=== PATIENT | female | born 1995 | race Caucasian/White ===

== ENCOUNTER 2018-01-29 01:17 | Emergency (ER) | payer OTHER ==
--- NOTE | 2018-01-29 03:05 | ED ---
Abdominal Pain HPI - General Chief Complaint: Abdominal Pain Stated Complaint: Poss Ectopic Time Seen by Provider: 01/29/18 02:56 Source: patient Mode of arrival: ambulatory Limitations: no limitations - History of Present Illness Initial Comments: Nidia is a 22-year-old female with a history of ectopic in the past to presents to the emergency department today for evaluation of left-sided pelvic pain. Patient reports the pain began approximately one week ago, she thought it may be instructed cramps. However she didn't start her period so today she took 2 tests both of which were positive. She was concerned that she had pain and positive test she thought she should come to the ER for evaluation of possible ectopic . Pain is moderate, aching, constant, no exacerbating or relieving factors. She has no associated dysuria urinary frequency or hematuria. No history of kidney stones. Patient reports her last period started on November 06. - Related Data Previous Rx's Medication Instructions Recorded Ibuprofen [Motrin] 600 mg PO Q6HR PRN #40 day 01/22/17 [id number] 6.25-5-10Mg/5Ml 5 ml PO Q4-6H 5 Days ml 01/22/17 [Phenergan VC with Codeine] Allergies Allergy/AdvReac Type Severity Reaction Status Date / Time No Known Allergies Allergy Verified 01/29/18 01:45 Review of Systems ROS Statement: Those systems with pertinent positive or pertinent negative responses have been documented in the HPI. ROS Other: All systems not noted in ROS Statement are negative. Past Medical History Additional Past Medical History / Comment(s): Ectopic - left History of Any Multi-Drug Resistant Organisms: None Reported Additional Past Surgical History / Comment(s): tubal Past Psychological History: No Psychological Hx Reported Smoking Status: Current every day smoker Past Alcohol Use History: None Reported Past Drug Use History: None Reported General Exam - General Exam Comments Initial Comments: Physical Exam GENERAL: Patient is well-developed and well-nourished. Patient is nontoxic and well- hydrated and is in no distress. HENT: Normocephalic, Atraumatic. EYES: PERRL, EOMI PULMONARY: Unlabored respirations. No audible rales rhonchi or wheezing was noted. CARDIOVASCULAR: There is a regular rate and rhythm without any murmurs gallops or rubs. ABDOMEN: Soft and nontender with normal bowel sounds. SKIN: Skin is clear with no lesions or rashes and otherwise unremarkable. : Deferred NEUROLOGIC: Patient is alert and oriented x3. Moving all extremities spontaneously MUSCULOSKELETAL: Normal extremities with adequate strength and full range of motion. No lower extremity swelling or edema. No calf tenderness. PSYCHIATRIC: Normal psychiatric evaluation. Limitations: no limitations Limitations: no limitations Course Vital Signs 01/29/18 01:43 Temperature 98.6 F Pulse Rate 62 Respiratory 18 Rate Blood Pressure 119/80 O2 Sat by Pulse 100 Oximetry Medical Decision Making - Medical Decision Making Patient was seen and evaluated, history is obtained from patient Patient with a history of ectopic , 2 positive tests at home and left-sided pelvic pain Will obtain labs as well as an ultrasound to evaluate for possible ectopic Labs resulted, beta-hCGs only 350 therefore be unlikely to see anything on ultrasound however we will proceed with ultrasound Ultrasound findings reviewed. was not identified. There are no abnormalities noted in the adnexa bilaterally. No free fluid She was sleeping comfortably in bed. I woke the patient and discussed the results with her. I advised the patient that is imperative that she have close OB follow-up. She does have established care. Patient discharged home in stable condition. - Lab Data Result diagrams: 01/29/18 03:34 01/29/18 03:34 Lab Results 01/29/18 01/29/18 01/29/18 Range/Units 03:34 03:34 03:34 WBC 8.4 (3.8-10.6) k/uL RBC 4.41 (3.80-5.40) m/uL Hgb 13.8 (11.4-16.0) gm/dL Hct 40.0 (34.0-46.0) % MCV 90.8 (80.0-100.0) fL MCH 31.3 (25.0-35.0) pg MCHC 34.4 (31.0-37.0) g/dL RDW 13.6 (11.5-15.5) % Plt Count 223 (150-450) k/uL Neutrophils % 51 % Lymphocytes % 39 % Monocytes % 5 % Eosinophils % 2 % Basophils % 1 % Neutrophils # 4.3 (1.3-7.7) k/uL Lymphocytes # 3.3 (1.0-4.8) k/uL Monocytes # 0.4 (0-1.0) k/uL Eosinophils # 0.1 (0-0.7) k/uL Basophils # 0.1 (0-0.2) k/uL Sodium 139 (137-145) mmol/L Potassium 4.4 (3.5-5.1) mmol/L Chloride 107 (98-107) mmol/L Carbon Dioxide 23 (22-30) mmol/L Anion Gap 9 mmol/L BUN 8 (7-17) mg/dL Creatinine 0.67 (0.52-1.04) mg/dL Est GFR (CKD-EPI)AfAm >90 (>60 ml/min/1.73 sqM) Est GFR (CKD-EPI)NonAf >90 (>60 ml/min/1.73 sqM) Glucose 83 (74-99) mg/dL Calcium 9.3 (8.4-10.2) mg/dL Total Bilirubin 0.4 (0.2-1.3) mg/dL AST 19 (14-36) U/L ALT 32 (9-52) U/L Alkaline Phosphatase 66 (38-126) U/L Total Protein 7.6 (6.3-8.2) g/dL Albumin 4.5 (3.5-5.0) g/dL HCG, Quant 324.1 mIU/mL Urine Color Light Yellow Urine Appearance Cloudy H (Clear) Urine pH 6.0 (5.0-8.0) Ur Specific [place] 1.007 (1.001-1.035) Urine Protein Negative (Negative) Urine Glucose (UA) Negative (Negative) Urine Ketones Negative (Negative) Urine Blood Negative (Negative) Urine Nitrite Negative (Negative) Urine Bilirubin Negative (Negative) Urine Urobilinogen <2.0 (<2.0) mg/dL Ur Leukocyte Esterase Negative (Negative) Urine RBC 1 (0-5) /hpf Urine WBC <1 (0-5) /hpf Ur Squamous Epith Cells 9 H (0-4) /hpf Urine Bacteria Moderate H (None) /hpf Urine Mucus Rare H (None) /hpf Blood Type Blood Type Recheck Antibody Screen Spec Expiration Date 01/29/18 Range/Units 03:34 WBC (3.8-10.6) k/uL RBC (3.80-5.40) m/uL Hgb (11.4-16.0) gm/dL Hct (34.0-46.0) % MCV (80.0-100.0) fL MCH (25.0-35.0) pg MCHC (31.0-37.0) g/dL RDW (11.5-15.5) % Plt Count (150-450) k/uL Neutrophils % % Lymphocytes % % Monocytes % % Eosinophils % % Basophils % % Neutrophils # (1.3-7.7) k/uL Lymphocytes # (1.0-4.8) k/uL Monocytes # (0-1.0) k/uL Eosinophils # (0-0.7) k/uL Basophils # (0-0.2) k/uL Sodium (137-145) mmol/L Potassium (3.5-5.1) mmol/L Chloride (98-107) mmol/L Carbon Dioxide (22-30) mmol/L Anion Gap mmol/L BUN (7-17) mg/dL Creatinine (0.52-1.04) mg/dL Est GFR (CKD-EPI)AfAm (>60 ml/min/1.73 sqM) Est GFR (CKD-EPI)NonAf (>60 ml/min/1.73 sqM) Glucose (74-99) mg/dL Calcium (8.4-10.2) mg/dL Total Bilirubin (0.2-1.3) mg/dL AST (14-36) U/L ALT (9-52) U/L Alkaline Phosphatase (38-126) U/L Total Protein (6.3-8.2) g/dL Albumin (3.5-5.0) g/dL HCG, Quant mIU/mL Urine Color Urine Appearance (Clear) Urine pH (5.0-8.0) Ur Specific [place] (1.001-1.035) Urine Protein (Negative) Urine Glucose (UA) (Negative) Urine Ketones (Negative) Urine Blood (Negative) Urine Nitrite (Negative) Urine Bilirubin (Negative) Urine Urobilinogen (<2.0) mg/dL Ur Leukocyte Esterase (Negative) Urine RBC (0-5) /hpf Urine WBC (0-5) /hpf Ur Squamous Epith Cells (0-4) /hpf Urine Bacteria (None) /hpf Urine Mucus (None) /hpf Blood Type A Negative Blood Type Recheck No Antibody Screen NEGATIVE Spec Expiration Date 02/01/2018 - 4419 Disposition Clinical Impression: Pelvic pain affecting in first trimester, antepartum Disposition: HOME SELF-CARE Condition: Good Instructions: Pelvic Pain in Women (ED), Abdominal Pain in (ED) Is patient prescribed a controlled substance at d/c from ED?: No Referrals: Dina Wooten DO [Primary Care Provider] - 1-2 days Time of Disposition: 05:40
[2018-01-29 04:04] LABS: Basophils # (A) 0.1 k/uL (0-0.2); Basophils % (A) 1 %; Eosinophils # (A) 0.1 k/uL (0-0.7); Eosinophils % (A) 2 %; HGB 13.8 gm/dL (11.4-16.0); Lymphocytes # (A) 3.3 k/uL (1.0-4.8); Lymphocytes % (A) 39 %; MCH 31.3 pg (25.0-35.0); MCHC 34.4 g/dL (31.0-37.0); MCV 90.8 fL (80.0-100.0); Mean Platelet Volume 8.3; Monocytes # (A) 0.4 k/uL (0-1.0); Monocytes % (A) 5 %; Neutrophils # (A) 4.3 k/uL (1.3-7.7); Neutrophils % (A) 51 %; Platelet Count 223 k/uL (150-450); RBC 4.41 m/uL (3.80-5.40); RDW 13.6 % (11.5-15.5); WBC 8.4 k/uL (3.8-10.6)
[2018-01-29 04:06] LABS: Appearance,Urine Cloudy (Clear); Bacteria,Urine Moderate /hpf; Bilirubin,Urine Negative (Negative); Blood,Urine Negative (Negative); Color,Urine Light Yellow; Glucose,Urine (UA) Negative (Negative); Ketones,Urine Negative (Negative); Leukocyte Esterase,Urine Negative (Negative); Mucus,Urine Rare /hpf; Nitrite,Urine Negative (Negative); Protein,Urine Negative (Negative); RBC,Urine 1 /hpf (0-5); Specific Gravity,Urine 1.007 (1.001-1.035); Squamous Epithelial Cell,Urine 9 /hpf (0-4); Urobilinogen,Urine <2.0 mg/dL (<2.0); WBC,Urine <1 /hpf (0-5)
[2018-01-29 04:10] LABS: ALT 32 U/L (9-52); AST 19 U/L (14-36); Albumin 4.5 g/dL (3.5-5.0); Alkaline Phosphatase 66 U/L (38-126); Anion Gap 9 mmol/L; Blood Urea Nitrogen 8 mg/dL (7-17); Calcium 9.3 mg/dL (8.4-10.2); Carbon Dioxide 23 mmol/L (22-30); Chloride 107 mmol/L (98-107); Glucose 83 mg/dL (74-99); Potassium 4.4 mmol/L (3.5-5.1); Sodium 139 mmol/L (137-145); Total Bilirubin 0.4 mg/dL (0.2-1.3); Total Protein 7.6 g/dL (6.3-8.2)
[2018-01-29 04:25] LABS: HCG,Quantitative Serum 324.1 mIU/mL
--- NOTE | 2018-01-29 05:14 | US ---
EXAM: US First Trimester, Transabdominal US , Transvaginal CLINICAL HISTORY: Reason: Left sided pelvic pain, concern for ectopic TECHNIQUE: Real-time transabdominal and transvaginal obstetrical ultrasound of the maternal pelvis and a first trimester with image documentation. Transvaginal imaging was used for better evaluation of the fetus and adnexa. COMPARISON: None available FINDINGS: Gestation: No intrauterine identified. Uterus/cervix: Uterus measures 6.8 x 3.7 x 4.3 cm. No focal myometrial abnormalities. Ovaries: Right ovary is unremarkable and measures 3.3 x 1.3 x 1.8 cm. Left ovary is unremarkable and measures 2.5 x 1.7 x 2.2 cm. No abnormal adnexal masses or cysts identified. Free fluid: No pelvic free fluid. IMPRESSION: No intrauterine identified. No abnormal adnexal masses or cysts. No pelvic free fluid. In a patient with history of , differential considerations would include very early intrauterine , recent or possible nonidentified ectopic . Clinical correlation with serial beta hCG and short-term ultrasound follow-up recommended. [employer] 01/29/18 05:26 Verify Receipt Verified receipt with Dr. San on 01/29 05:26 (-05:00)
[2018-01-29 05:51] VITALS: BP 122/68; PULSE 69; RESP 16; TEMP 98.4
== END 2018-01-29 05:43 | disposition home or self-care (01) ==
LOC: EC 01:17
DX: O99.89 Other specified diseases and conditions complicating pregnancy, childbirth and the puerperium (principal); R10.2 Pelvic and perineal pain; O09.291 Supervision of pregnancy with other poor reproductive or obstetric history, first trimester; O99.331 Smoking (tobacco) complicating pregnancy, first trimester; F17.200 Nicotine dependence, unspecified, uncomplicated; Z3A.12 12 weeks gestation of pregnancy
CPT/HCPCS: 36415; 76801; 76817; 80053; 81001; 84702; 85025; 86850; 86900; 86901; 99284

== ENCOUNTER 2018-03-12 22:33 | Emergency (ER) | payer OTHER ==
[2018-03-12] MEDS ORDERED: SODIUM CHLORIDE 0.9% 1,000 ML IV ONE (22:44)
[2018-03-12 23:25] LABS: Basophils % (A) 0 %; Eosinophils # (A) 0.1 k/uL (0-0.7); Eosinophils % (A) 1 %; HCT 37.8 % (34.0-46.0); HGB 12.3 gm/dL (11.4-16.0); Lymphocytes # (A) 2.7 k/uL (1.0-4.8); Lymphocytes % (A) 30 %; MCH 30.1 pg (25.0-35.0); MCHC 32.7 g/dL (31.0-37.0); Mean Platelet Volume 7.7; Monocytes # (A) 0.4 k/uL (0-1.0); Monocytes % (A) 4 %; Neutrophils # (A) 5.8 k/uL (1.3-7.7); Neutrophils % (A) 62 %; Platelet Count 228 k/uL (150-450); RBC 4.11 m/uL (3.80-5.40); RDW 13.7 % (11.5-15.5); WBC 9.2 k/uL (3.8-10.6)
[2018-03-12 23:36] LABS: ALT 26 U/L (9-52); AST 15 U/L (14-36); Albumin 4.4 g/dL (3.5-5.0); Alkaline Phosphatase 48 U/L (38-126); Anion Gap 10 mmol/L; Blood Urea Nitrogen 7 mg/dL (7-17); Calcium 9.5 mg/dL (8.4-10.2); Carbon Dioxide 22 mmol/L (22-30); Chloride 105 mmol/L (98-107); Glucose 82 mg/dL (74-99); Potassium 3.9 mmol/L (3.5-5.1); Sodium 137 mmol/L (137-145); Total Bilirubin 0.4 mg/dL (0.2-1.3); Total Protein 7.3 g/dL (6.3-8.2)
--- NOTE | 2018-03-12 23:52 | US ---
EXAMINATION TYPE: Transabdominal DATE OF EXAM: 05/19/17 COMPARISON: US CLINICAL HISTORY: pain. EXAM PERFORMED: EXAM MEASUREMENTS: GESTATIONAL AGE / DATING Physician Established: Not yet established Dates by LMP: LMP unknown ( Dates by First Scan: No date by previous scan Dates by Current Scan for: (10 weeks/1 days) EDC: 10/07/18 MATERNAL ANATOMY Uterus: 9.3 x 6.3 x 6.5cm Right Ovary: 2.6 x 1.5 x 1.6cm Left Ovary: 2.6 x 1.7 x 2.0cm Post CDS / Adnexa: wnl Presence of free fluid: no GESTATION / SURVEY CRL: 3.2 (10 weeks/ 1 days) Yolk Sac (normal less than 6mm): not visualized Heart Rate: 159 bpm Rhythm: Normal IUP: Viable IUP Date of LMP: unknown Beta HcG (if available): Not available at this time IMPRESSION: No complicating process.
[2018-03-13] MEDS ORDERED: Rhogam IMMUNE GLOBULIN 1,500 UNIT/1 ML IM ONE (00:04)
--- NOTE | 2018-03-13 00:13 | ED ---
Abdominal Pain HPI - General Chief Complaint: Abdominal Pain Stated Complaint: early preg, cramping Time Seen by Provider: 03/12/18 22:44 Source: patient Mode of arrival: ambulatory Limitations: no limitations - History of Present Illness Initial Comments: 22-year-old female with history of left-sided ectopic presenting today for chief complaint of vaginal bleeding in . Patient states she has had multiple positive test with emergency department evaluation, she states that at her last ultrasound she was too early on to tell if it was viable intrauterine . Patient states she began having light pink spotting for the past 2 days. Patient admits to mild lower abdominal cramping. Patient denies any severe abdominal pain. Patient denies any vaginal discharge, nausea, vomiting, headache, dizziness, fever, chills, night sweats or other associated complaints. Remainder of ROS negative, Patient denies any recentshortness of breath, chest pain, back pain, numbness or tingling, dysuria or hematuria, constipation or diarrhea, headaches or visual changes, or any other complaints. Upon arrival patient's vital signs stable patient appears well signs of acute distress - Related Data Home Medications Medication Instructions Recorded Confirmed No Known Home Medications 03/12/18 03/12/18 Allergies Allergy/AdvReac Type Severity Reaction Status Date / Time No Known Allergies Allergy Verified 03/12/18 23:27 Review of Systems ROS Statement: Those systems with pertinent positive or pertinent negative responses have been documented in the HPI. ROS Other: All systems not noted in ROS Statement are negative. Past Medical History Additional Past Medical History / Comment(s): Ectopic - left History of Any Multi-Drug Resistant Organisms: None Reported Additional Past Surgical History / Comment(s): tubal Past Psychological History: No Psychological Hx Reported Smoking Status: Current every day smoker Past Alcohol Use History: None Reported Past Drug Use History: None Reported General Exam - General Exam Comments Initial Comments: General: The patient is awake and alert, in no distress, and does not appear acutely ill. Eye: Pupils are equal, round and reactive to light, extra-ocular movements are intact. No nystagmus. There is normal conjunctiva bilaterally. No signs of icterus. Ears, nose, mouth and throat: There are moist mucous membranes and no oral lesions. Neck: The neck is supple, there is no tenderness or JVD. Cardiovascular: There is a regular rate and rhythm. No murmur, rub or gallop is appreciated. Respiratory: Lungs are clear to auscultation, respirations are non-labored, breath sounds are equal. No wheezes, stridor, rales, or rhonchi. Gastrointestinal: Soft, non-distended, abdomen without masses or organomegaly noted. Mild lower pelvic bilateral abdominal pain to deep palpation. There is no rebound or guarding present. No CVA tenderness. Bowel sounds are unremarkable. Musculoskeletal: Normal ROM, no tenderness. Strength 5/5. Sensation intact. Pulses equal bilaterally 2+. Neurological: A&O x 3. CN II-XII intact, There are no obvious motor or sensory deficits. Coordination appears grossly intact. Speech is normal. Skin: Skin is warm and dry and no rashes or lesions are noted. Psychiatric: Cooperative, appropriate mood & affect, normal judgment. Pelvic Exam: Normal female hair pattern. No external lesions. Vaginal mucosa pink well rugated. No cervical motion tenderness. Cervical os closed. No blood in vaginal vault. No signs of vaginal discharge. Mild bilateral adnexal tenderness. Limitations: no limitations Course Vital Signs 03/12/18 03/13/18 22:37 01:11 Temperature 98.6 F 98.2 F Pulse Rate 92 81 Respiratory 20 18 Rate Blood Pressure 116/77 115/74 O2 Sat by Pulse 100 99 Oximetry Medical Decision Making - Medical Decision Making Ultrasound obtained revealing viable intrauterine . Adnexa within normal limits, no free fluid in the posterior cul-de-sac. No evidence of ectopic . [place]-rump consistent with 10 week . Patient A-, Rhogam administered. Abdominal exam not concerning for acute abdomen at this time. Patient did have mild adnexal tenderness however this is bilateral, and mild. Patient's history as well as physical examination findings concerning for threatened miscarriage. Hemoglobin and blood pressure stable at this time I do feel patient is stable for discharge with [facility] follow-up outpatient. Patient is agreeable plan discharge. Patient denies questions at this time. Return parameters were discussed at length with patient who verbalized understanding. Patient discharged in stable condition appearing well, I did discuss the case with Dr. Reddy attending provider prior to patient's discharge - Lab Data Result diagrams: 03/12/18 23:02 03/12/18 23:02 Lab Results 03/12/18 03/12/18 03/12/18 Range/Units 23:02 23:02 23:02 WBC 9.2 (3.8-10.6) k/uL RBC 4.11 (3.80-5.40) m/uL Hgb 12.3 (11.4-16.0) gm/dL Hct 37.8 (34.0-46.0) % MCV 92.0 (80.0-100.0) fL MCH 30.1 (25.0-35.0) pg MCHC 32.7 (31.0-37.0) g/dL RDW 13.7 (11.5-15.5) % Plt Count 228 (150-450) k/uL Neutrophils % 62 % Lymphocytes % 30 % Monocytes % 4 % Eosinophils % 1 % Basophils % 0 % Neutrophils # 5.8 (1.3-7.7) k/uL Lymphocytes # 2.7 (1.0-4.8) k/uL Monocytes # 0.4 (0-1.0) k/uL Eosinophils # 0.1 (0-0.7) k/uL Basophils # 0.0 (0-0.2) k/uL Sodium 137 (137-145) mmol/L Potassium 3.9 (3.5-5.1) mmol/L Chloride 105 (98-107) mmol/L Carbon Dioxide 22 (22-30) mmol/L Anion Gap 10 mmol/L BUN 7 (7-17) mg/dL Creatinine 0.50 L (0.52-1.04) mg/dL Est GFR (CKD-EPI)AfAm >90 (>60 ml/min/1.73 sqM) Est GFR (CKD-EPI)NonAf >90 (>60 ml/min/1.73 sqM) Glucose 82 (74-99) mg/dL Calcium 9.5 (8.4-10.2) mg/dL Total Bilirubin 0.4 (0.2-1.3) mg/dL AST 15 (14-36) U/L ALT 26 (9-52) U/L Alkaline Phosphatase 48 (38-126) U/L Total Protein 7.3 (6.3-8.2) g/dL Albumin 4.4 (3.5-5.0) g/dL HCG, Quant 81359.6 mIU/mL Urine Color Urine Appearance (Clear) Urine pH (5.0-8.0) Ur Specific [place] (1.001-1.035) Urine Protein (Negative) Urine Glucose (UA) (Negative) Urine Ketones (Negative) Urine Blood (Negative) Urine Nitrite (Negative) Urine Bilirubin (Negative) Urine Urobilinogen (<2.0) mg/dL Ur Leukocyte Esterase (Negative) Trichomonas Ag (Rapid) (Negative) Blood Type A Negative Blood Type Recheck No Antibody Screen NEGATIVE 03/12/18 03/13/18 Range/Units 23:02 00:09 WBC (3.8-10.6) k/uL RBC (3.80-5.40) m/uL Hgb (11.4-16.0) gm/dL Hct (34.0-46.0) % MCV (80.0-100.0) fL MCH (25.0-35.0) pg MCHC (31.0-37.0) g/dL RDW (11.5-15.5) % Plt Count (150-450) k/uL Neutrophils % % Lymphocytes % % Monocytes % % Eosinophils % % Basophils % % Neutrophils # (1.3-7.7) k/uL Lymphocytes # (1.0-4.8) k/uL Monocytes # (0-1.0) k/uL Eosinophils # (0-0.7) k/uL Basophils # (0-0.2) k/uL Sodium (137-145) mmol/L Potassium (3.5-5.1) mmol/L Chloride (98-107) mmol/L Carbon Dioxide (22-30) mmol/L Anion Gap mmol/L BUN (7-17) mg/dL Creatinine (0.52-1.04) mg/dL Est GFR (CKD-EPI)AfAm (>60 ml/min/1.73 sqM) Est GFR (CKD-EPI)NonAf (>60 ml/min/1.73 sqM) Glucose (74-99) mg/dL Calcium (8.4-10.2) mg/dL Total Bilirubin (0.2-1.3) mg/dL AST (14-36) U/L ALT (9-52) U/L Alkaline Phosphatase (38-126) U/L Total Protein (6.3-8.2) g/dL Albumin (3.5-5.0) g/dL HCG, Quant mIU/mL Urine Color Yellow Urine Appearance Clear (Clear) Urine pH 6.5 (5.0-8.0) Ur Specific [place] 1.010 (1.001-1.035) Urine Protein Negative (Negative) Urine Glucose (UA) Negative (Negative) Urine Ketones 1+ H (Negative) Urine Blood Negative (Negative) Urine Nitrite Negative (Negative) Urine Bilirubin Negative (Negative) Urine Urobilinogen <2.0 (<2.0) mg/dL Ur Leukocyte Esterase Negative (Negative) Trichomonas Ag (Rapid) Negative (Negative) Blood Type Blood Type Recheck Antibody Screen Disposition Clinical Impression: with 10 completed weeks gestation, Vaginal bleeding before 22 weeks gestation, Threatened in first trimester Disposition: HOME SELF-CARE Condition: Good Instructions (If sedation given, give patient instructions): Threatened Miscarriage (ED) Additional Instructions: Please use medication as discussed. Please follow-up with OBGYN in next week. Please return to emergency room if the symptoms increase or worsen or for any other concerns. Is patient prescribed a controlled substance at d/c from ED?: No Referrals: Dina Wooten DO [Primary Care Provider] - 1-2 days Daniel Lemos DO [Doctor of Osteopathic Medicine] - 1-2 days Isra Jenkins DO [REFERRING] - 1-2 days Time of Disposition: 00:23
[2018-03-13 00:33] LABS: HCG,Quantitative Serum 70806.6 mIU/mL
[2018-03-13 00:34] LABS: Appearance,Urine Clear (Clear); Bilirubin,Urine Negative (Negative); Blood,Urine Negative (Negative); Color,Urine Yellow; Glucose,Urine (UA) Negative (Negative); Ketones,Urine 1+ (Negative); Leukocyte Esterase,Urine Negative (Negative); Nitrite,Urine Negative (Negative); PH, Urine 6.5 (5.0-8.0); Protein,Urine Negative (Negative); Urobilinogen,Urine <2.0 mg/dL (<2.0)
[2018-03-13 01:15] VITALS: BP 115/74; PULSE 81; RESP 18; TEMP 98.2
[2018-03-14 14:28] LABS: C. trachomatis,PCR Negative (Neg,Equiv); Chlamydia trachomatis Source Vagina
[2018-03-14 14:31] LABS: N. gonorrhoeae,PCR Negative (Neg,Equiv); Neisseria Source Vagina
== END 2018-03-13 01:53 | disposition home or self-care (01) ==
LOC: EC 22:33
DX: O20.0 Threatened abortion (principal); O99.331 Smoking (tobacco) complicating pregnancy, first trimester; F17.200 Nicotine dependence, unspecified, uncomplicated; Z87.59 Personal history of other complications of pregnancy, childbirth and the puerperium; Z3A.10 10 weeks gestation of pregnancy
CPT/HCPCS: 36415; 86900; 86901; 80053; 85025; 86850; 81003; 84702; 87808; 87491; 87591; 87070; 87086; 87205; 76801; 99284; 96360; 96361; 96372; J2791

== ENCOUNTER 2018-07-08 23:29 | Emergency (ER) | payer OTHER ==
[2018-07-08 23:46] VITALS: BP 122/77; PULSE 95; RESP 20; TEMP 98.8
--- NOTE | 2018-07-09 00:34 | XR ---
EXAM: XR Left Wrist Complete, 4 Views CLINICAL HISTORY: Pain. TECHNIQUE: Frontal, lateral, oblique and scaphoid views of the left wrist. COMPARISON: No relevant prior studies available. FINDINGS: Bones/joints: No acute fracture. No dislocation. Soft tissues: Unremarkable. No radiopaque foreign body. IMPRESSION: No radiographic evidence of acute fracture or dislocation.
--- NOTE | 2018-07-09 00:36 | ED ---
Upper Extremity HPI - General Chief Complaint: Extremity Injury, Upper Stated Complaint: [facility]-Fall,lt hand injury Time Seen by Provider: 07/08/18 23:54 Source: patient Mode of arrival: ambulatory Limitations: no limitations - History of Present Illness Initial Comments: Patient is a 23-year-old woman who presents after having a wrist injury at work. She states that she had been standing on an elevated surface, went to step down and then when she stepped onto a box broke resulting in her falling. She caught her fall with her left hand and has had pain to the wrist. She denies other injuries in the fall. She denies any weakness or numbness to wrist or hand. Complaint: Injury to:: left, wrist -: hour(s) Other Extremity Injury: Wrist: Left Handedness: right Place: work Improves With: none Worsens With: movement of extremity Context: fall Associated Symptoms: denies other symptoms - Related Data Home Medications Medication Instructions Recorded Confirmed No Known Home Medications 03/12/18 03/12/18 Allergies Allergy/AdvReac Type Severity Reaction Status Date / Time adhesive tape AdvReac Rash/Hives Verified 07/08/18 23:46 Review of Systems ROS Statement: Those systems with pertinent positive or pertinent negative responses have been documented in the HPI. ROS Other: All systems not noted in ROS Statement are negative. Musculoskeletal: Reports: as per HPI, arthralgia. Denies: joint swelling Neurological: Reports: as per HPI. Denies: weakness, numbness Past Medical History Additional Past Medical History / Comment(s): Ectopic - left History of Any Multi-Drug Resistant Organisms: None Reported Additional Past Surgical History / Comment(s): tubal Past Psychological History: No Psychological Hx Reported Smoking Status: Current every day smoker Past Alcohol Use History: Rare Past Drug Use History: Marijuana General Exam Limitations: no limitations General appearance: alert, in no apparent distress Head exam: Present: atraumatic, normocephalic Cardiovascular Exam: Present: other (Radial pulses normal and symmetric.) Left Elbow exam: Present: normal inspection, full ROM. Absent: tenderness Forearm Wrist exam: Present: normal inspection, full ROM. Absent: tenderness, swelling, abrasion Hand Wrist exam: Present: normal inspection, full ROM, tenderness (The patient has small amount of tenderness at the thenar eminence.), other (There is no snuffbox tenderness.). Absent: swelling, abrasion, laceration, ecchymosis, deformity, crepitus, dislocation Neurological exam: Absent: motor sensory deficit Course Vital Signs 07/08/18 23:43 Temperature 98.8 F Pulse Rate 95 Respiratory 20 Rate Blood Pressure 122/77 O2 Sat by Pulse 98 Oximetry Disposition Clinical Impression: Sprain and strain of wrist Disposition: HOME SELF-CARE Condition: Good Instructions (If sedation given, give patient instructions): Wrist Injury (ED) Is patient prescribed a controlled substance at d/c from ED?: No Referrals: Dina Wooten DO [Primary Care Provider] - 1-2 days
== END 2018-07-09 00:49 | disposition home or self-care (01) ==
LOC: EC 23:29
DX: S63.502A Unspecified sprain of left wrist, initial encounter (principal); F17.200 Nicotine dependence, unspecified, uncomplicated; Z91.048 Other nonmedicinal substance allergy status; W18.31XA Fall on same level due to stepping on an object, initial encounter; Y93.89 Activity, other specified; Y92.69 Other specified industrial and construction area as the place of occurrence of the external cause; Y99.0 Civilian activity done for income or pay
CPT/HCPCS: 99283

== ENCOUNTER 2018-09-25 21:42 | Emergency (ER) | payer OTHER ==
[2018-09-25 21:48] VITALS: RESP 18
--- NOTE | 2018-09-25 22:40 | XR ---
EXAM: XR Chest, 2 Views CLINICAL HISTORY: ITS.REASON XR Reason: Pain TECHNIQUE: Frontal and lateral views of the chest. COMPARISON: 01/22/17 FINDINGS: Lungs: No consolidation or mass. Pleural space: No effusion. Heart: No cardiomegaly. Mediastinum: Unremarkable. Bones/joints: No acute findings. IMPRESSION: No acute cardiopulmonary process.
[2018-09-25] MEDS ORDERED: AMOXIC-POT CLAV 875MG STARTER 2 EACH TABLET PO STA (23:49)
--- NOTE | 2018-09-25 23:53 | ED ---
General Adult HPI - General Chief complaint: Upper Respiratory Infection Stated complaint: Congestion Time Seen by Provider: 09/25/18 22:01 Source: family, RN notes reviewed Mode of arrival: ambulatory Limitations: no limitations - History of Present Illness Initial comments: 23-year-old female with a past medical history of ectopic presents to the emergency department for a chief complaint of cough congestion and ear pain 2 days. Patient states she is having severe pain in her bilateral ears. States this hurts worse when she coughs or sneezes. Denies headache return or neck pain. Denies fevers or chills. Patient states she is also coughing up phlegm. Denies any shortness of breath or chest pain. Denies any difficulty breathing. Patient has not taken any medications for this. Patient requesting work note. Patient has no other complaints at this time including shortness of breath, chest pain, abdominal pain, nausea or vomiting, headache, or visual changes. - Related Data Previous Rx's Medication Instructions Recorded Amoxicillin/Potassium Clav 1 tab PO Q12HR #20 tab 09/25/18 [Augmentin 875-125 Tablet] Allergies Allergy/AdvReac Type Severity Reaction Status Date / Time adhesive tape AdvReac Rash/Hives Verified 09/25/18 21:45 Review of Systems ROS Statement: Those systems with pertinent positive or pertinent negative responses have been documented in the HPI. ROS Other: All systems not noted in ROS Statement are negative. Past Medical History Additional Past Medical History / Comment(s): Ectopic - left History of Any Multi-Drug Resistant Organisms: None Reported Additional Past Surgical History / Comment(s): tubal Past Psychological History: No Psychological Hx Reported Smoking Status: Current every day smoker Past Alcohol Use History: Rare Past Drug Use History: Marijuana General Exam Limitations: no limitations General appearance: alert, in no apparent distress Head exam: Present: atraumatic, normocephalic, normal inspection Eye exam: Present: normal appearance, PERRL, EOMI. Absent: scleral icterus, conjunctival injection, periorbital swelling ENT exam: Present: normal oropharynx (Uvula midline, no tonsillar exudates noted bilaterally.), mucous membranes moist, normal external ear exam. Absent: TM's normal bilaterally (Patient has erythematous bulging tympanic membranes bilaterally) Neck exam: Present: normal inspection, full ROM. Absent: tenderness, meningism us, lymphadenopathy Respiratory exam: Present: normal lung sounds bilaterally (No wheezing. No decreased breath sounds.). Absent: respiratory distress, wheezes, rales, rhonc hi, stridor Cardiovascular Exam: Present: regular rate, normal rhythm, normal heart sounds. Absent: systolic murmur, diastolic murmur, rubs, gallop, clicks GI/Abdominal exam: Present: soft, normal bowel sounds. Absent: distended, tenderness, guarding, rebound, rigid Neurological exam: Present: alert, oriented X3 Psychiatric exam: Present: normal affect, normal mood Course Vital Signs 09/25/18 21:45 Temperature 98 F Pulse Rate 92 Respiratory 18 Rate Blood Pressure 123/77 O2 Sat by Pulse 100 Oximetry Medical Decision Making - Medical Decision Making 23-year-old female presents for cough congestion and bilateral ear pain 2 days. Patient is coughing up phlegm. No shortness of breath or chest pain. On exam patient has erythematous bulging bilateral tympanic membranes. Lung sounds are clear. Vitals are stable, patient is afebrile. Denies any fevers at home. Denies any headache or neck pain. Chest x-ray negative for acute process. At this time patient likely has any situs with otitis media. She will be treated with Augmentin. Recommended following up with primary care in 1-2 days or returning here if she has any worsening symptoms. Disposition Clinical Impression: Sinusitis, Otitis media Disposition: HOME SELF-CARE Condition: Good Instructions (If sedation given, give patient instructions): Ear Infection (ED), Sinusitis (ED) Additional Instructions: Please take antibiotic as directed. Please follow-up with primary care in 1-2 days. Return here to the emergency department if you have any worsening symptoms. Prescriptions: Amoxicillin/Potassium Clav [Augmentin 875-125 Tablet] 1 tab PO Q12HR #20 tab Is patient prescribed a controlled substance at d/c from ED?: No Referrals: Dina Wooten DO [Primary Care Provider] - 1-2 days Time of Disposition: 23:48
[2018-09-26 00:08] VITALS: BP 124/79; PULSE 77; TEMP 98.8
== END 2018-09-26 00:16 | disposition home or self-care (01) ==
LOC: EC 21:42
DX: J32.9 Chronic sinusitis, unspecified (principal); H66.93 Otitis media, unspecified, bilateral; F17.200 Nicotine dependence, unspecified, uncomplicated; Z91.048 Other nonmedicinal substance allergy status
CPT/HCPCS: 71046; 99283

== ENCOUNTER 2019-05-15 16:03 | Observation (INO) | payer OTHER ==
--- NOTE | 2019-05-15 16:15 | ED ---
Skin/Abscess/FB HPI - General Chief complaint: Skin/Abscess/Foreign Body Stated complaint: Rash/hives Time Seen by Provider: 05/15/19 16:15 Source: patient Mode of arrival: ambulatory Limitations: no limitations - History of Present Illness Initial comments: 24-year-old female presenting today for chief complaint of itchiness all over. Patient states she has noticed small raised bumps under arms and legs she states they're very itchy. She states that this began today. Patient states she did buy a new soap. Patient denies any lip or tongue swelling. Patient did have one episode of vomiting today. Patient began menstruation today as well, admits to vaginal bleeding, but no abdominal pain. Denies liver disease, or ETOH abuse. Patient denies difficulty breathing or swallowing. Patient was concerned she was having an allergic reaction due to the itching and presented to the ER for evaluation. Upon arrival patient appears well, nontoxic no respiratory distress. - Related Data Previous Rx's Medication Instructions Recorded Amoxicillin/Potassium Clav 1 tab PO Q12HR #20 tab 09/25/18 [Augmentin 875-125 Tablet] Allergies Allergy/AdvReac Type Severity Reaction Status Date / Time adhesive tape AdvReac Rash/Hives Verified 05/15/19 16:14 Review of Systems ROS Statement: Those systems with pertinent positive or pertinent negative responses have been documented in the HPI. ROS Other: All systems not noted in ROS Statement are negative. Past Medical History Additional Past Medical History / Comment(s): Ectopic - left History of Any Multi-Drug Resistant Organisms: None Reported Additional Past Surgical History / Comment(s): tubal Past Psychological History: No Psychological Hx Reported Smoking Status: Current every day smoker Past Alcohol Use History: Rare Past Drug Use History: Marijuana General Exam - General Exam Comments Initial Comments: General: The patient is awake and alert, in no distress, and does not appear acutely ill. Eye: +3 mm pupils are equal, round and reactive to light, extra-ocular movements are intact. No nystagmus. There is normal conjunctiva bilaterally. Eye appear to have icterus. Ears, nose, mouth and throat: There are moist mucous membranes and no oral lesions. Neck: The neck is supple, there is no tenderness or JVD. Cardiovascular: There is a regular rate and rhythm. No murmur, rub or gallop is appreciated. Respiratory: Lungs are clear to auscultation, respirations are non-labored, breath sounds are equal. No wheezes, stridor, rales, or rhonchi. Gastrointestinal: Soft, non-distended, non-tender abdomen without masses or organomegaly noted. There is no rebound or guarding present. Musculoskeletal: Normal ROM, no tenderness. Strength 5/5. Sensation intact. Radial pulses equal bilaterally 2+. Neurological: A&O x 3. CN II-XII intact grossly, There are no obvious motor or sensory deficits. Coordination appears grossly intact. Speech is normal. Skin: Skin is warm and dry and no rashes. Small raised, skin color pin tip sized lesions on arms and legs, some areas are excoriated from itching, no raised wheels appreciated, no redness appreciated aside from excoriation' Psychiatric: Cooperative, appropriate mood & affect, normal judgment. Limitations: no limitations Course Vital Signs 05/15/19 05/15/19 05/15/19 16:12 18:47 19:29 Temperature 98.5 F 98.1 F Pulse Rate 86 82 85 Respiratory 20 18 18 Rate Blood Pressure 135/89 123/69 136/80 O2 Sat by Pulse 99 98 99 Oximetry Medical Decision Making - Medical Decision Making AST/ALT elevated, Bilirubin significantly elevated. Coagulation studies WNL. Patient has no GI symptoms or abdominal pain aside from 1 isolated episode of vomiting. No diarrhea. Patient currently menstruating. Patient VS stable, no hypotension. patient acetominophen levels WNL. patient hepatitis A panel (-). Remaining Hepatitis panel pending. No travel. No known exposures. Patient will be admitted for further evaluation of increased bilirubin/hepatitis. Patient is agreeable to admission. Dr. Doherty spoke with both admitting and GI who are agreeable to care plan. - Lab Data Result diagrams: 05/15/19 16:20 05/15/19 16:20 Lab Results 05/15/19 05/15/19 05/15/19 Range/Units 16:20 16:20 16:20 WBC 7.3 (3.8-10.6) k/uL RBC 4.78 (3.80-5.40) m/uL Hgb 15.1 (11.4-16.0) gm/dL Hct 44.5 (34.0-46.0) % MCV 93.1 (80.0-100.0) fL MCH 31.7 (25.0-35.0) pg MCHC 34.0 (31.0-37.0) g/dL RDW 12.8 (11.5-15.5) % Plt Count 204 (150-450) k/uL Neutrophils % 76 % Lymphocytes % 14 % Monocytes % 5 % Eosinophils % 4 % Basophils % 0 % Neutrophils # 5.6 (1.3-7.7) k/uL Lymphocytes # 1.0 (1.0-4.8) k/uL Monocytes # 0.4 (0-1.0) k/uL Eosinophils # 0.3 (0-0.7) k/uL Basophils # 0.0 (0-0.2) k/uL PT (9.0-12.0) sec INR (<1.2) APTT (22.0-30.0) sec Sodium (137-145) mmol/L Potassium (3.5-5.1) mmol/L Chloride (98-107) mmol/L Carbon Dioxide (22-30) mmol/L Anion Gap mmol/L BUN (7-17) mg/dL Creatinine (0.52-1.04) mg/dL Est GFR (CKD-EPI)AfAm (>60 ml/min/1.73 sqM) Est GFR (CKD-EPI)NonAf (>60 ml/min/1.73 sqM) Glucose (74-99) mg/dL Calcium (8.4-10.2) mg/dL Total Bilirubin (0.2-1.3) mg/dL Conjugated Bilirubin (0.0-0.3) mg/dL Unconjugated Bilirubin (0.0-1.1) mg/dL Delta Bilirubin (0.0-0.2) mg/dL AST (14-36) U/L ALT (4-34) U/L Alkaline Phosphatase (38-126) U/L Total Protein (6.3-8.2) g/dL Albumin (3.5-5.0) g/dL Lipase (23-300) U/L Urine Color Dark [place] Urine Appearance Cloudy H (Clear) Urine RBC >182 H (0-5) /hpf Urine WBC 118 H (0-5) /hpf Ur Squamous Epith Cells 33 H (0-4) /hpf Urine Bacteria Rare H (None) /hpf Urine Mucus Many H (None) /hpf Urine HCG, Qual Not Detected (Not Detectd) Urine Opiates Screen (NotDetected) Ur Oxycodone Screen (NotDetected) Urine Methadone Screen (NotDetected) Ur Propoxyphene Screen (NotDetected) Acetaminophen ug/mL Ur Barbiturates Screen (NotDetected) U Tricyclic Antidepress (NotDetected) Ur Phencyclidine Scrn (NotDetected) Ur Amphetamines Screen (NotDetected) U Methamphetamines Scrn (NotDetected) U Benzodiazepines Scrn (NotDetected) Urine Cocaine Screen (NotDetected) U Marijuana (THC) Screen (NotDetected) Hepatitis A IgM Ab 05/15/19 05/15/19 05/15/19 Range/Units 16:20 16:20 16:20 WBC (3.8-10.6) k/uL RBC (3.80-5.40) m/uL Hgb (11.4-16.0) gm/dL Hct (34.0-46.0) % MCV (80.0-100.0) fL MCH (25.0-35.0) pg MCHC (31.0-37.0) g/dL RDW (11.5-15.5) % Plt Count (150-450) k/uL Neutrophils % % Lymphocytes % % Monocytes % % Eosinophils % % Basophils % % Neutrophils # (1.3-7.7) k/uL Lymphocytes # (1.0-4.8) k/uL Monocytes # (0-1.0) k/uL Eosinophils # (0-0.7) k/uL Basophils # (0-0.2) k/uL PT (9.0-12.0) sec INR (<1.2) APTT (22.0-30.0) sec Sodium 138 (137-145) mmol/L Potassium 4.7 (3.5-5.1) mmol/L Chloride 103 (98-107) mmol/L Carbon Dioxide 24 (22-30) mmol/L Anion Gap 11 mmol/L BUN 14 (7-17) mg/dL Creatinine 0.89 (0.52-1.04) mg/dL Est GFR (CKD-EPI)AfAm >90 (>60 ml/min/1.73 sqM) Est GFR (CKD-EPI)NonAf >90 (>60 ml/min/1.73 sqM) Glucose 105 H (74-99) mg/dL Calcium 9.5 (8.4-10.2) mg/dL Total Bilirubin 6.2 H (0.2-1.3) mg/dL Conjugated Bilirubin (0.0-0.3) mg/dL Unconjugated Bilirubin (0.0-1.1) mg/dL Delta Bilirubin (0.0-0.2) mg/dL AST 179 H (14-36) U/L ALT 183 H (4-34) U/L Alkaline Phosphatase 204 H (38-126) U/L Total Protein 8.0 (6.3-8.2) g/dL Albumin 4.6 (3.5-5.0) g/dL Lipase 116 (23-300) U/L Urine Color Urine Appearance (Clear) Urine RBC (0-5) /hpf Urine WBC (0-5) /hpf Ur Squamous Epith Cells (0-4) /hpf Urine Bacteria (None) /hpf Urine Mucus (None) /hpf Urine HCG, Qual (Not Detectd) Urine Opiates Screen (NotDetected) Ur Oxycodone Screen (NotDetected) Urine Methadone Screen (NotDetected) Ur Propoxyphene Screen (NotDetected) Acetaminophen <10.0 ug/mL Ur Barbiturates Screen (NotDetected) U Tricyclic Antidepress (NotDetected) Ur Phencyclidine Scrn (NotDetected) Ur Amphetamines Screen (NotDetected) U Methamphetamines Scrn (NotDetected) U Benzodiazepines Scrn (NotDetected) Urine Cocaine Screen (NotDetected) U Marijuana (THC) Screen (NotDetected) Hepatitis A IgM Ab 05/15/19 05/15/19 05/15/19 Range/Units 16:20 16:20 17:13 WBC (3.8-10.6) k/uL RBC (3.80-5.40) m/uL Hgb (11.4-16.0) gm/dL Hct (34.0-46.0) % MCV (80.0-100.0) fL MCH (25.0-35.0) pg MCHC (31.0-37.0) g/dL RDW (11.5-15.5) % Plt Count (150-450) k/uL Neutrophils % % Lymphocytes % % Monocytes % % Eosinophils % % Basophils % % Neutrophils # (1.3-7.7) k/uL Lymphocytes # (1.0-4.8) k/uL Monocytes # (0-1.0) k/uL Eosinophils # (0-0.7) k/uL Basophils # (0-0.2) k/uL PT (9.0-12.0) sec INR (<1.2) APTT (22.0-30.0) sec Sodium (137-145) mmol/L Potassium (3.5-5.1) mmol/L Chloride (98-107) mmol/L Carbon Dioxide (22-30) mmol/L Anion Gap mmol/L BUN (7-17) mg/dL Creatinine (0.52-1.04) mg/dL Est GFR (CKD-EPI)AfAm (>60 ml/min/1.73 sqM) Est GFR (CKD-EPI)NonAf (>60 ml/min/1.73 sqM) Glucose (74-99) mg/dL Calcium (8.4-10.2) mg/dL Total Bilirubin 5.9 H (0.2-1.3) mg/dL Conjugated Bilirubin 2.6 H (0.0-0.3) mg/dL Unconjugated Bilirubin 1.8 H (0.0-1.1) mg/dL Delta Bilirubin 1.5 H (0.0-0.2) mg/dL AST (14-36) U/L ALT (4-34) U/L Alkaline Phosphatase (38-126) U/L Total Protein (6.3-8.2) g/dL Albumin (3.5-5.0) g/dL Lipase (23-300) U/L Urine Color Urine Appearance (Clear) Urine RBC (0-5) /hpf Urine WBC (0-5) /hpf Ur Squamous Epith Cells (0-4) /hpf Urine Bacteria (None) /hpf Urine Mucus (None) /hpf Urine HCG, Qual (Not Detectd) Urine Opiates Screen Detected H (NotDetected) Ur Oxycodone Screen Not Detected (NotDetected) Urine Methadone Screen Not Detected (NotDetected) Ur Propoxyphene Screen Not Detected (NotDetected) Acetaminophen ug/mL Ur Barbiturates Screen Not Detected (NotDetected) U Tricyclic Antidepress Not Detected (NotDetected) Ur Phencyclidine Scrn Not Detected (NotDetected) Ur Amphetamines Screen Not Detected (NotDetected) U Methamphetamines Scrn Not Detected (NotDetected) U Benzodiazepines Scrn Not Detected (NotDetected) Urine Cocaine Screen Not Detected (NotDetected) U Marijuana (THC) Screen Detected H (NotDetected) Hepatitis A IgM Ab NEGATIVE 05/15/19 Range/Units 17:20 WBC (3.8-10.6) k/uL RBC (3.80-5.40) m/uL Hgb (11.4-16.0) gm/dL Hct (34.0-46.0) % MCV (80.0-100.0) fL MCH (25.0-35.0) pg MCHC (31.0-37.0) g/dL RDW (11.5-15.5) % Plt Count (150-450) k/uL Neutrophils % % Lymphocytes % % Monocytes % % Eosinophils % % Basophils % % Neutrophils # (1.3-7.7) k/uL Lymphocytes # (1.0-4.8) k/uL Monocytes # (0-1.0) k/uL Eosinophils # (0-0.7) k/uL Basophils # (0-0.2) k/uL PT 11.4 (9.0-12.0) sec INR 1.1 (<1.2) APTT 22.1 (22.0-30.0) sec Sodium (137-145) mmol/L Potassium (3.5-5.1) mmol/L Chloride (98-107) mmol/L Carbon Dioxide (22-30) mmol/L Anion Gap mmol/L BUN (7-17) mg/dL Creatinine (0.52-1.04) mg/dL Est GFR (CKD-EPI)AfAm (>60 ml/min/1.73 sqM) Est GFR (CKD-EPI)NonAf (>60 ml/min/1.73 sqM) Glucose (74-99) mg/dL Calcium (8.4-10.2) mg/dL Total Bilirubin (0.2-1.3) mg/dL Conjugated Bilirubin (0.0-0.3) mg/dL Unconjugated Bilirubin (0.0-1.1) mg/dL Delta Bilirubin (0.0-0.2) mg/dL AST (14-36) U/L ALT (4-34) U/L Alkaline Phosphatase (38-126) U/L Total Protein (6.3-8.2) g/dL Albumin (3.5-5.0) g/dL Lipase (23-300) U/L Urine Color Urine Appearance (Clear) Urine RBC (0-5) /hpf Urine WBC (0-5) /hpf Ur Squamous Epith Cells (0-4) /hpf Urine Bacteria (None) /hpf Urine Mucus (None) /hpf Urine HCG, Qual (Not Detectd) Urine Opiates Screen (NotDetected) Ur Oxycodone Screen (NotDetected) Urine Methadone Screen (NotDetected) Ur Propoxyphene Screen (NotDetected) Acetaminophen ug/mL Ur Barbiturates Screen (NotDetected) U Tricyclic Antidepress (NotDetected) Ur Phencyclidine Scrn (NotDetected) Ur Amphetamines Screen (NotDetected) U Methamphetamines Scrn (NotDetected) U Benzodiazepines Scrn (NotDetected) Urine Cocaine Screen (NotDetected) U Marijuana (THC) Screen (NotDetected) Hepatitis A IgM Ab Disposition Clinical Impression: Icterus, Itchy skin, Increased bilirubin level, Hepatitis Disposition: ADMITTED IP TO THIS [facility] Condition: Stable Is patient prescribed a controlled substance at d/c from ED?: No Referrals: Dina Wooten DO [Primary Care Provider] - 1-2 days Time of Disposition: 19:15 Decision to Admit Reason: Admit from EC Decision Date: 05/15/19 Decision Time: 19:15
[2019-05-15] MEDS ORDERED: SODIUM CHLORIDE 0.9% 500 ML 500 ML IV ONE (16:19)
[2019-05-15] MEDS ORDERED: FAMOTIDINE 20 MG/2 ML VIAL IV STA (16:19)
[2019-05-15] MEDS ORDERED: methylPREDNISolone SOD SUCCI 125 MG/2 ML VIAL IV STA (16:19)
[2019-05-15 16:40] LABS: Basophils % (A) 0 %; Eosinophils # (A) 0.3 k/uL (0-0.7); Eosinophils % (A) 4 %; HCT 44.5 % (34.0-46.0); HGB 15.1 gm/dL (11.4-16.0); Lymphocytes % (A) 14 %; MCH 31.7 pg (25.0-35.0); MCV 93.1 fL (80.0-100.0); Mean Platelet Volume 8.7; Monocytes # (A) 0.4 k/uL (0-1.0); Monocytes % (A) 5 %; Neutrophils # (A) 5.6 k/uL (1.3-7.7); Neutrophils % (A) 76 %; Platelet Count 204 k/uL (150-450); RBC 4.78 m/uL (3.80-5.40); RDW 12.8 % (11.5-15.5); WBC 7.3 k/uL (3.8-10.6)
[2019-05-15 16:55] LABS: Bacteria,Urine Rare /hpf; Mucus,Urine Many /hpf; RBC,Urine >182 /hpf (0-5); Squamous Epithelial Cell,Urine 33 /hpf (0-4); WBC,Urine 118 /hpf (0-5)
[2019-05-15 16:56] LABS: Appearance,Urine Cloudy (Clear); Color,Urine Dark Orange
[2019-05-15 17:03] LABS: ALT 183 U/L (4-34); AST 179 U/L (14-36); African American GFR (CKD) >90 (>60 ml/min/1.73 sqM); Albumin 4.6 g/dL (3.5-5.0); Alkaline Phosphatase 204 U/L (38-126); Anion Gap 11 mmol/L; Blood Urea Nitrogen 14 mg/dL (7-17); Calcium 9.5 mg/dL (8.4-10.2); Carbon Dioxide 24 mmol/L (22-30); Chloride 103 mmol/L (98-107); Glucose 105 mg/dL (74-99); Non-African American GFR(CKD) >90 (>60 ml/min/1.73 sqM); Potassium 4.7 mmol/L (3.5-5.1); Sodium 138 mmol/L (137-145); Total Bilirubin 6.2 mg/dL (0.2-1.3)
[2019-05-15 17:40] LABS: INR 1.1 (<1.2); Partial Thromboplastin Time 22.1 sec (22.0-30.0); Prothrombin Time 11.4 sec (9.0-12.0)
--- NOTE | 2019-05-15 17:40 | US ---
EXAMINATION TYPE: US abdomen limited DATE OF EXAM: 05/15/2019 COMPARISON: CT 12/24/2016 CLINICAL HISTORY: jaundice, LFT elevated. Patient not NPO, ate faroese fries 1.5 hours ago. EXAM MEASUREMENTS: Liver Length: 16.1 cm Gallbladder Wall: 0.4 cm CBD: 0.3 cm Right Kidney: 10.6 x 5.1 x 5.6 cm Pancreas: Tail obscured by overlying bowel gas, visualized portions appear wnl Liver: Very mildly heterogenous. Gallbladder: Contracted. No stones visualized Evidence for sonographic Valle's sign: No CBD: wnl Right Kidney: No hydronephrosis or masses seen IMPRESSION: 1. Gallbladder wall thickening is likely attributable to contraction of the gallbladder. No cholelith iasis nor dilation of the common bile duct and therefore no findings to favor acute cholecystitis. 2. Very mildly heterogenous echotexture of the liver. Correlate for underlying hepatitis or other hep atocellular disease.
[2019-05-15 17:54] LABS: Amphetamine Screen,Urine Not Detected (NotDetected); Barbiturate Screen,Urine Not Detected (NotDetected); Benzodiazepines Screen,Urine Not Detected (NotDetected); Cocaine Screen,Urine Not Detected (NotDetected); Methadone Screen, Urine Not Detected (NotDetected); Opiate Screen,Urine Detected (NotDetected); Oxycodone Screen, Urine Not Detected (NotDetected); Phencyclidine Screen,Urine Not Detected (NotDetected); Tricyclic Antidepressant,Urine Not Detected (NotDetected); Urn Cannabinoid Scrn Detected (NotDetected)
[2019-05-15 18:19] LABS: Hepatitis A Antibody IgM NEGATIVE
[2019-05-15 18:47] LABS: Bilirubin, Conjugated 2.6 mg/dL (0.0-0.3); Bilirubin, Delta 1.5 mg/dL (0.0-0.2); Bilirubin,Unconjugated 1.8 mg/dL (0.0-1.1); Total Bilirubin 5.9 mg/dL (0.2-1.3)
[2019-05-15] MEDS ORDERED: NALOXONE 0.4 MG/ML 1 ML VIAL IV PRN (19:13)
[2019-05-15] MEDS ORDERED: NICOTINE 14MG/24HR PATCH TRANSDERM STA (19:40)
[2019-05-15] MEDS: SODIUM CHLORIDE 0.9% 1,000 ML IV SCH (21:24)
[2019-05-15] MEDS ORDERED: ONDANSETRON 4 MG/2 ML VIAL IVP PRN (23:28)
[2019-05-15] MEDS ORDERED: MORPHINE SULFATE 2 MG/ML SYRINGE IVP PRN ×2 (23:29→23:54)
[2019-05-16 06:27] LABS: HCT 39.2 % (34.0-46.0); HGB 13.3 gm/dL (11.4-16.0); MCH 32.5 pg (25.0-35.0); MCHC 33.9 g/dL (31.0-37.0); MCV 95.8 fL (80.0-100.0); Mean Platelet Volume 9.1; Platelet Count 189 k/uL (150-450); RDW 12.9 % (11.5-15.5); WBC 7.7 k/uL (3.8-10.6)
[2019-05-16 06:43] LABS: ALT 265 U/L (4-34); AST 272 U/L (14-36); African American GFR (CKD) >90 (>60 ml/min/1.73 sqM); Albumin 4.2 g/dL (3.5-5.0); Alkaline Phosphatase 230 U/L (38-126); Anion Gap 10 mmol/L; Blood Urea Nitrogen 11 mg/dL (7-17); Calcium 9.3 mg/dL (8.4-10.2); Carbon Dioxide 23 mmol/L (22-30); Chloride 110 mmol/L (98-107); Glucose 123 mg/dL (74-99); Non-African American GFR(CKD) >90 (>60 ml/min/1.73 sqM); Sodium 143 mmol/L (137-145); Total Bilirubin 3.9 mg/dL (0.2-1.3); Total Protein 7.5 g/dL (6.3-8.2)
[2019-05-16] MEDS: SODIUM CHLORIDE 0.9% 1,000 ML IV SCH (08:47)
[2019-05-16] MEDS ORDERED: PANTOPRAZOLE 40 MG TABLET PO SCH (09:30)
[2019-05-16 11:53] LABS: Hepatitis B Core IgM Non-Reactive (Non-Reactive); Hepatitis B Surface Antigen Non-Reactive (Non-Reactive); Hepatitis C IgG Antibody Non-Reactive (Non-Reactive)
[2019-05-16] MEDS ORDERED: NICOTINE 21MG/24HR PATCH TRANSDERM SCH (15:00)
--- NOTE | 2019-05-16 15:00 | P.HPIM ---
History of Present Illness H&P Date: 05/16/19 Chief Complaint: Itching History of presenting complaint: This is a pleasant 24-year-old patient of Dr. Dina Wooten. Rather unremarkable past medical history. Does smoke a pack a day. Does smoke some marijuana. Works at [employer]. Lives with her fianc. On Thursday she was given a tablet of Ritalin by a friend that she took. Didn't feel any different. Later in the day did have a rash. Also took Tylenol about thousand milligrams. She patient subsequently developed some itching and nausea. Decided to come to the ER. Found to be icterus and jaundice. She also noticed in the hospital that her urine had become strong and yellow colored. Admitted for the same. Patient denies taking any other health supplement or any other drugs. Had slight right upper quadrant discomfort. Improved this morning. GI was consulted. Denies any other sexual activity other than that with her fianc. She doesn't think her finances any other sexual partner. Review of systems: GEN.: Itching, rash improved EYES: None HEENT: No throat tightness NECK: None RESPIRATORY: No wheezing CARDIOVASCULAR: None GASTROINTESTINAL: None GENITOURINARY: None MUSCULOSKELETAL: None LYMPHATICS: None HEMATOLOGICAL: None PSYCHIATRY: None NEUROLOGICAL: None Past medical history to include: Unremarkable Social history: As of the [employer]. Does smoke marijuana. Smokes about a pack a day. Denies use of any other drugs. Does work at [employer]. Family history: Unremarkable Physical examination: VITAL SIGNS: 98.5, 86, 20, 135/89, 99% on room air] GENERAL: BMI 30.4, sitting on bed, not in distress. EYES: [Pupils equal. Conjunctiva icterus l. HEENT: External appearance of nose and ears normal, oral cavity grossly normal. NECK: JVD not raised; masses not palpable. HEART: First and second heart sounds are normal; no edema. LUNGS: Respiratory rate normal; clear to auscultation. ABDOMEN: Soft, nontender, liver spleen not palpable, no masses palpable. PSYCH: Alert and oriented x3; mood and affect normal. NEUROLOGICAL: Cranial nerves grossly intact; no facial asymmetry, power and sensation grossly intact. LYMPHATICS: No lymph nodes palpable in the axilla and neck INVESTIGATIONS, reviewed in the clinical context: White count 7.3 hemoglobin 15 11 platelets 204 potassium 4.7 bun 14 creatinine 0.89 Total bilirubin 5.9 AST 179 ALT 183 alkaline phosphatase 204 lipase 116 Today-potassium 5 creatinine 0.7 to total bilirubin 3.9 AST 272 AST to 65 alkaline phosphatase 2:30 Abdominal ultrasound-gallbladder wall contracted to gallstones, bilateral dilatation. Mild heterogenous echo stricture of the liver - Assessment: -Acute obstructive jaundice. Cause unclear. Could be viral. No evidence of gallbladder or stones. No fever no chills. Slight bump in LFTs to slight decrease in bilirubin. -Recreational marijuana use -Chronic nicotine dependence patient cigarette smoker -Obesity BMI 30.4 Plan: Patient is admitted. Initially given IV fluids. Repeat LFTs in the morning. Discussed with Dr. Dalton Samaniego from GI. Any liver often symptoms including Tylenol will not be given. Patient otherwise feeling better. Did have slight discomfort in the right upper quadrant. Follow overnight. Patient was regular diet. Discussed with patient. Repeat labs in the morning. Past Medical History Additional Past Medical History / Comment(s): Ectopic - left History of Any Multi-Drug Resistant Organisms: None Reported Additional Past Surgical History / Comment(s): tubal Past Anesthesia/Blood Transfusion Reactions: No Reported Reaction Past Psychological History: No Psychological Hx Reported Smoking Status: Current every day smoker Past Alcohol Use History: Rare Past Drug Use History: Marijuana Medications and Allergies Home Medications Medication Instructions Recorded Confirmed Type No Known Home Medications 05/16/19 05/16/19 History Allergies Allergy/AdvReac Type Severity Reaction Status Date / Time adhesive tape AdvReac Rash/Hives Verified 05/16/19 07:59 Physical Exam Vitals: Vital Signs Temp Pulse Pulse Resp BP BP BP 05/16/19 04:50 98.2 F 63 18 114/77 05/15/19 20:20 98 F 73 18 110/71 05/15/19 19:29 85 18 136/80 05/15/19 18:47 98.1 F 82 18 123/69 05/15/19 16:12 98.5 F 86 20 135/89 Pulse Ox 05/16/19 04:50 97 05/15/19 20:20 98 05/15/19 19:29 99 05/15/19 18:47 98 05/15/19 16:12 99 Intake and Output 05/15/19 05/16/19 05/16/19 22:59 06:59 14:59 Intake Total 200 100 Balance 200 100 Intake: Oral 200 100 Other: Voiding Method Toilet # Voids 1 1 Weight 87.997 kg Results CBC & Chem 7: 05/16/19 05:59 05/16/19 05:59 Labs: Abnormal Lab Results - Last 24 Hours (Table) 05/15/19 05/15/19 05/15/19 Range/Units 16:20 16:20 16:20 Chloride (98-107) mmol/L Glucose 105 H (74-99) mg/dL Total Bilirubin 6.2 H (0.2-1.3) mg/dL Conjugated Bilirubin (0.0-0.3) mg/dL Unconjugated Bilirubin (0.0-1.1) mg/dL Delta Bilirubin (0.0-0.2) mg/dL AST 179 H (14-36) U/L ALT 183 H (4-34) U/L Alkaline Phosphatase 204 H (38-126) U/L Urine Appearance Cloudy H (Clear) Urine RBC >182 H (0-5) /hpf Urine WBC 118 H (0-5) /hpf Ur Squamous Epith Cells 33 H (0-4) /hpf Urine Bacteria Rare H (None) /hpf Urine Mucus Many H (None) /hpf Urine Opiates Screen Detected H (NotDetected) U Marijuana (THC) Screen Detected H (NotDetected) 05/15/19 05/16/19 Range/Units 16:20 05:59 Chloride 110 H (98-107) mmol/L Glucose 123 H (74-99) mg/dL Total Bilirubin 5.9 H 3.9 H (0.2-1.3) mg/dL Conjugated Bilirubin 2.6 H (0.0-0.3) mg/dL Unconjugated Bilirubin 1.8 H (0.0-1.1) mg/dL Delta Bilirubin 1.5 H (0.0-0.2) mg/dL AST 272 H (14-36) U/L ALT 265 H (4-34) U/L Alkaline Phosphatase 230 H (38-126) U/L Urine Appearance (Clear) Urine RBC (0-5) /hpf Urine WBC (0-5) /hpf Ur Squamous Epith Cells (0-4) /hpf Urine Bacteria (None) /hpf Urine Mucus (None) /hpf Urine Opiates Screen (NotDetected) U Marijuana (THC) Screen (NotDetected) Thrombosis Risk Factor Assmnt - Choose All That Apply Any of the Below Risk Factors Present?: No Other Risk Factors: No Thrombosis Risk Factor Assessment Level: Very Low Risk
--- NOTE | 2019-05-16 15:04 | CONS ---
CONSULTATION DATE OF SERVICE: 05/16/2019 REASON FOR CONSULTATION: Acute hepatitis. HISTORY OF PRESENT ILLNESS: The patient is a 24-year-old pleasant white female admitted to the emergency room complaining of skin rash on the upper extremities, associated with some vague abdominal discomfort that started on Thursday. The patient states that she took Adderall, just one dose and after that she started having some itching on the upper extremities with slightly bumped raised lesions, started in arms and then involved her lower extremities, also. She is got concerned, she came to the emergency room yesterday and was noted to have some jaundice and labs were done which revealed a bilirubin of 6 with elevated ALT and AST. The patient denies any history of alcohol abuse. Denies any intravenous drug use or any high-risk behavior. No prior history of chronic liver disease. No history of jaundice or hepatitis in the past. She denies taking any new medications in the last 2 weeks. No recent antibiotic use. She denies any cough, fever, chills, or night sweats. No recent travel history. PAST MEDICAL HISTORY: Unremarkable. MEDICATIONS AT HOME: Adderall as mentioned above. PAST SURGICAL HISTORY: Ectopic . ALLERGIES: None. SOCIAL HISTORY: Current smoker but no alcohol use. FAMILY HISTORY: Unremarkable. REVIEW OF SYSTEMS: CARDIOPULMONARY: She denies any chest pain or shortness of breath. GENITOURINARY: No dysuria or hematuria. MUSCULOSKELETAL: Unremarkable. SKIN: Unremarkable. ENDOCRINE: Unremarkable. PSYCHIATRIC: Unremarkable. NEUROLOGY: Unremarkable. ENT/VISION: Unremarkable. CONSTITUTIONAL: No recent weight loss. No fever, chills or night sweats. PHYSICAL EXAMINATION: Blood pressure is 114/77, pulse 63, temperature 98.2. HEENT: Examination unremarkable, conjunctivae are pink, sclerae slightly icteric. Oral cavity no lesions. NECK: No JVD or lymph node enlargement. CHEST: Clear to auscultation. HEART: Regular rate and rhythm. ABDOMEN: Soft. There was very minimal tenderness in the right upper quadrant area, but it was benign. The rest of the abdomen was benign. EXTREMITIES: No pedal edema. SKIN: No rashes. NEUROLOGIC: Alert and oriented x3. No focal deficits. LABS: WBC 7.3, hemoglobin 15.1, platelets normal. Basic metabolic panel is normal. PT, INR is within normal limits. T-bilirubin 5.9 is down to 3.9 today. AST 179, ALT 183, alkaline phosphatase 204. Today, AST is 272, ALT is 265, alkaline phosphatase 230. Ultrasound of the right upper quadrant showed no evidence of gallstones. No biliary ductal dilation. Increased echogenicity of the liver suspicious for underlying hepatitis. IMPRESSION: This is a lady who presents to the hospital with some rash involving the upper extremities after taking 1 dose of Adderall on Thursday and noted to have elevated LFTs and jaundice. She has no history of chronic liver disease, most likely dealing with an acute hepatocellular injury secondary to acute hepatitis, probably medication related or infectious related. Hepatitis serologies for A, B and C are pending. She denies any fever, chills, night sweats. The possibility of COVID-19 infection cannot be excluded. Doubt it is Adderall related as the symptoms began on Thursday itself, but she denies taking any new medications in the last 2 weeks. Her bilirubin is slightly improved today. RECOMMENDATIONS: 1. We will repeat labs in the morning. 2. Await hepatitis serologies for A, B and C. 3. If her labs are improving, she can be discharged home tomorrow with an outpatient followup in a week. Thank you for this consultation. MMODL / IJN: [id number] /
[2019-05-16 15:31] VITALS: BP 108/70; PULSE 52; RESP 16; TEMP 98.5
[2019-05-16 18:33] LABS: EBV-EA (IgG) 0.3 AI; EBV-EBNA(IgG) >8.0 AI; EBV-VCA (IgG) >8.0 AI; EBV-VCA (IgM) 0.3 AI
--- NOTE | 2019-05-17 21:29 | P.DS ---
Providers Date of admission: 05/15/19 19:26 Expected date of discharge: 05/16/19 Attending physician: Jermaine Espinal Consults: 05/15/19 19:13 Consult Physician Routine Consulting Provider: Dolores Samaniego Consult Reason/Comments: Hepatitis Do you want consulting provider notified?: Already Contacted 05/15/19 19:27 Consult Physician Urgent Consulting Provider: Dolores Samaniego Consult Reason/Comments: hepatitis Do you want consulting provider notified?: Already Contacted Primary care physician: Dina Wooten [facility] Course: Chief Complaint: Itching History of presenting complaint: This is a pleasant 24-year-old patient of Dr. Dina Wooten. Rather unremarkable past medical history. Does smoke a pack a day. Does smoke some marijuana. Works at [employer]. Lives with her fianc. On Thursday she was given a tablet of Ritalin by a friend that she took. Didn't feel any different. Later in the day did have a rash. Also took Tylenol about thousand milligrams. She patient subsequently developed some itching and nausea. Decided to come to the ER. Found to be icterus and jaundice. She also noticed in the hospital that her urine had become strong and yellow colored. Admitted for the same. Patient denies taking any other health supplement or any other drugs. Had slight right upper quadrant discomfort. Improved this morning. GI was consulted. Denies any other sexual activity other than that with her fianc. She doesn't think her finances any other sexual partner. Patient is seen by Dr. Dalton Samaniego from GI. Plan was to repeat labs in the morning. Late in the evening patient left AMA Consultation: Dr. Dalton Samaniego Physical examination: VITAL SIGNS: 98.5, 52, 16, 108/70, 99% on room air GENERAL: BMI 30.4, sitting on bed, not in distress. EYES: [Pupils equal. Conjunctiva icterus l. HEENT: External appearance of nose and ears normal, oral cavity grossly normal. NECK: JVD not raised; masses not palpable. HEART: First and second heart sounds are normal; no edema. LUNGS: Respiratory rate normal; clear to auscultation. ABDOMEN: Soft, nontender, liver spleen not palpable, no masses palpable. PSYCH: Alert and oriented x3; mood and affect normal. INVESTIGATIONS, reviewed in the clinical context: White count 7.3 hemoglobin 15 11 platelets 204 potassium 4.7 bun 14 creatinine 0.89 Total bilirubin 5.9 AST 179 ALT 183 alkaline phosphatase 204 lipase 116 Today-potassium 5 creatinine 0.7 to total bilirubin 3.9 AST 272 AST to 65 alkaline phosphatase 2:30 Abdominal ultrasound-gallbladder wall contracted to gallstones, bilateral dilatation. Mild heterogenous echo stricture of the liver - Assessment: -Acute obstructive jaundice. Cause unclear. Could be viral. No evidence of gallbladder or stones. No fever no chills. Slight bump in LFTs to slight decrease in bilirubin. -Recreational marijuana use -Chronic nicotine dependence patient cigarette smoker -Obesity BMI 30.4 Disposition: Patient left AMA Patient Condition at Discharge: Stable Plan - Discharge Summary Discharge Rx Participant: No New Discharge Prescriptions: No Action No Known Home Medications Discharge Medication List No Known Home Medications 05/16/19 [History] Follow up Appointment(s)/Referral(s): Dina Wooten DO [Primary Care Provider] - 1-2 days Discharge/Stand Alone Forms: Work/School Release, Work/Release Restrictions Form Discharge Disposition: Left Against Medical Advice
== END 2019-05-16 19:15 | disposition left against medical advice (07) ==
LOC: EC 16:03 → 6NMEDSUR 19:26 → INTOOBSV 19:26
PROVIDERS: ADMIT Hospitalist; ATTEND Hospitalist
DX: L29.9 Pruritus, unspecified (principal); R17 Unspecified jaundice; R21 Rash and other nonspecific skin eruption; R11.2 Nausea with vomiting, unspecified; R10.11 Right upper quadrant pain; R79.89 Other specified abnormal findings of blood chemistry; R74.8 Abnormal levels of other serum enzymes; E66.9 Obesity, unspecified; Z68.30 Body mass index [BMI] 30.0-30.9, adult; F17.210 Nicotine dependence, cigarettes, uncomplicated; F12.90 Cannabis use, unspecified, uncomplicated; Z91.048 Other nonmedicinal substance allergy status
CPT/HCPCS: 96375 ×3; 96361; 96374; 99284; 36415; 86665 ×2; 80053 ×2; 80074; 86663; 82248; 83690; 85025; 85027; 85610; 85730; 81001; 81025; 86664; 86645; 80306; 80329; 76705; G0378 ×2; S4990 ×2; J2930; J2405; J2270

== ENCOUNTER 2019-05-18 11:47 | Emergency (ER) | payer OTHER ==
[2019-05-18] MEDS ORDERED: METOCLOPRAMIDE 5 MG/ML 2 ML VIAL IVP STA (12:33)
[2019-05-18] MEDS ORDERED: SODIUM CHLORIDE 0.9% 1,000 ML IV STA (12:33)
[2019-05-18] MEDS ORDERED: FAMOTIDINE 20 MG/2 ML VIAL IV STA (12:33)
--- NOTE | 2019-05-18 12:37 | ED ---
General Adult HPI - General Chief complaint: Abdominal Pain Stated complaint: Revisit/abd pain Time Seen by Provider: 05/18/19 12:11 Source: patient, RN notes reviewed Mode of arrival: ambulatory Limitations: no limitations - History of Present Illness Initial comments: Patient is a pleasant 24-year-old female presenting to the emergency Department with complaints of abdominal discomfort. Onset of symptoms was earlier this morning around 2 or 3 AM. Patient had right upper quadrant discomfort with associated nausea and vomiting. Discomfort is improved and is currently 4/10. Patient still has some nausea. No constipation or diarrhea. Patient was in the hospital recently for rash. Blood work showed elevated liver enzymes and patient stayed overnight. Patient only had mild abdominal pressure at that time. Rash has completely resolved. Rash was described by patient is diffuse urticarial type rash. Patient states it was pruritic. - Related Data Home Medications Medication Instructions Recorded Confirmed No Known Home Medications 05/16/19 05/16/19 Allergies Allergy/AdvReac Type Severity Reaction Status Date / Time adhesive tape AdvReac Rash/Hives Verified 05/18/19 11:55 Review of Systems ROS Statement: Those systems with pertinent positive or pertinent negative responses have been documented in the HPI. ROS Other: All systems not noted in ROS Statement are negative. Constitutional: Denies: fever Eyes: Denies: eye pain ENT: Denies: ear pain Respiratory: Denies: cough Cardiovascular: Denies: chest pain Endocrine: Denies: fatigue Gastrointestinal: Reports: as per HPI, abdominal pain, nausea, vomiting Genitourinary: Denies: dysuria Musculoskeletal: Denies: back pain Skin: Reports: as per HPI Neurological: Denies: weakness Past Medical History Additional Past Medical History / Comment(s): Ectopic - left History of Any Multi-Drug Resistant Organisms: None Reported Additional Past Surgical History / Comment(s): tubal Past Anesthesia/Blood Transfusion Reactions: No Reported Reaction Past Psychological History: No Psychological Hx Reported Smoking Status: Current every day smoker Past Alcohol Use History: Rare Past Drug Use History: Marijuana General Exam Limitations: no limitations General appearance: alert, in no apparent distress Head exam: Present: normocephalic Eye exam: Present: normal appearance, PERRL ENT exam: Present: normal oropharynx Neck exam: Present: normal inspection Respiratory exam: Present: normal lung sounds bilaterally Cardiovascular Exam: Present: regular rate, normal rhythm Expanded Peripheral pulses: 2+: Posterior Tibialis (R), Posterior Tibialis (L), Dorsalis Pedis (R), Dorsalis Pedis (L) GI/Abdominal exam: Present: soft, tenderness (Moderate right upper quadrant t enderness, mild epigastric tenderness), normal bowel sounds. Absent: distended, guarding, rebound, rigid Extremities exam: Present: normal inspection Neurological exam: Present: alert Psychiatric exam: Present: normal affect, normal mood Skin exam: Present: normal color Course Vital Signs 05/18/19 11:52 Temperature 98.6 F Pulse Rate 80 Respiratory 20 Rate Blood Pressure 134/92 O2 Sat by Pulse 98 Oximetry Medical Decision Making - Medical Decision Making Patient reevaluated and feels much better. Liver enzymes have improved from previous. Abdomen soft with minimal tenderness right upper quadrant. Patient offered further imaging however refuses and states she feels better and like to go home. Patient updated on results and need for follow-up. - Lab Data Result diagrams: 05/18/19 12:46 05/18/19 12:46 Lab Results 05/18/19 05/18/19 05/18/19 Range/Units 12:40 12:46 12:46 WBC 6.8 (3.8-10.6) k/uL RBC 4.71 (3.80-5.40) m/uL Hgb 14.8 (11.4-16.0) gm/dL Hct 44.3 (34.0-46.0) % MCV 94.0 (80.0-100.0) fL MCH 31.3 (25.0-35.0) pg MCHC 33.3 (31.0-37.0) g/dL RDW 12.8 (11.5-15.5) % Plt Count 234 (150-450) k/uL Neutrophils % 51 % Lymphocytes % 38 % Monocytes % 5 % Eosinophils % 3 % Basophils % 1 % Neutrophils # 3.5 (1.3-7.7) k/uL Lymphocytes # 2.6 (1.0-4.8) k/uL Monocytes # 0.3 (0-1.0) k/uL Eosinophils # 0.2 (0-0.7) k/uL Basophils # 0.1 (0-0.2) k/uL PT 9.4 (9.0-12.0) sec INR 0.9 (<1.2) APTT 23.8 (22.0-30.0) sec Sodium (137-145) mmol/L Potassium (3.5-5.1) mmol/L Chloride (98-107) mmol/L Carbon Dioxide (22-30) mmol/L Anion Gap mmol/L BUN (7-17) mg/dL Creatinine (0.52-1.04) mg/dL Est GFR (CKD-EPI)AfAm (>60 ml/min/1.73 sqM) Est GFR (CKD-EPI)NonAf (>60 ml/min/1.73 sqM) Glucose (74-99) mg/dL Calcium (8.4-10.2) mg/dL Total Bilirubin (0.2-1.3) mg/dL AST (14-36) U/L ALT (4-34) U/L Alkaline Phosphatase (38-126) U/L Total Protein (6.3-8.2) g/dL Albumin (3.5-5.0) g/dL Amylase (30-110) U/L Lipase (23-300) U/L Urine Color Light Yellow Urine Appearance Clear (Clear) Urine pH 6.0 (5.0-8.0) Ur Specific [place] 1.005 (1.001-1.035) Urine Protein Negative (Negative) Urine Glucose (UA) Negative (Negative) Urine Ketones Negative (Negative) Urine Blood Negative (Negative) Urine Nitrite Negative (Negative) Urine Bilirubin Negative (Negative) Urine Urobilinogen <2.0 (<2.0) mg/dL Ur Leukocyte Esterase Negative (Negative) 05/18/19 Range/Units 12:46 WBC (3.8-10.6) k/uL RBC (3.80-5.40) m/uL Hgb (11.4-16.0) gm/dL Hct (34.0-46.0) % MCV (80.0-100.0) fL MCH (25.0-35.0) pg MCHC (31.0-37.0) g/dL RDW (11.5-15.5) % Plt Count (150-450) k/uL Neutrophils % % Lymphocytes % % Monocytes % % Eosinophils % % Basophils % % Neutrophils # (1.3-7.7) k/uL Lymphocytes # (1.0-4.8) k/uL Monocytes # (0-1.0) k/uL Eosinophils # (0-0.7) k/uL Basophils # (0-0.2) k/uL PT (9.0-12.0) sec INR (<1.2) APTT (22.0-30.0) sec Sodium 139 (137-145) mmol/L Potassium 4.6 (3.5-5.1) mmol/L Chloride 105 (98-107) mmol/L Carbon Dioxide 26 (22-30) mmol/L Anion Gap 8 mmol/L BUN 9 (7-17) mg/dL Creatinine 0.70 (0.52-1.04) mg/dL Est GFR (CKD-EPI)AfAm >90 (>60 ml/min/1.73 sqM) Est GFR (CKD-EPI)NonAf >90 (>60 ml/min/1.73 sqM) Glucose 91 (74-99) mg/dL Calcium 9.4 (8.4-10.2) mg/dL Total Bilirubin 0.6 (0.2-1.3) mg/dL AST 63 H (14-36) U/L ALT 236 H (4-34) U/L Alkaline Phosphatase 180 H (38-126) U/L Total Protein 7.7 (6.3-8.2) g/dL Albumin 4.5 (3.5-5.0) g/dL Amylase 47 (30-110) U/L Lipase 68 (23-300) U/L Urine Color Urine Appearance (Clear) Urine pH (5.0-8.0) Ur Specific [place] (1.001-1.035) Urine Protein (Negative) Urine Glucose (UA) (Negative) Urine Ketones (Negative) Urine Blood (Negative) Urine Nitrite (Negative) Urine Bilirubin (Negative) Urine Urobilinogen (<2.0) mg/dL Ur Leukocyte Esterase (Negative) - Radiology Data Radiology results: report reviewed (Ultrasound shows no evidence of cholecystitis or cholelithiasis. winnie-portal brightness.), image reviewed (Abdominal x-ray shows no acute process) Disposition Clinical Impression: Abdominal pain Disposition: HOME SELF-CARE Condition: Stable Instructions (If sedation given, give patient instructions): Abdominal Pain (ED) Additional Instructions: Please follow-up with primary care physician as well as gastric urologist in the next couple days for recheck. Return for increased pain, vomiting, fever, worsening or changing symptoms or other concerns. Is patient prescribed a controlled substance at d/c from ED?: No Referrals: Dina Wooten DO [Primary Care Provider] - 1-2 days Dolores Samaniego MD [STAFF PHYSICIAN] - 1-2 days Time of Disposition: 14:10
--- NOTE | 2019-05-18 13:07 | XR ---
EXAMINATION TYPE: XR KUB DATE OF EXAM: 05/18/2019 12:57 PM CLINICAL HISTORY: Right upper quadrant pain with nausea and vomiting TECHNIQUE: Single upright KUB image of the abdomen is obtained. COMPARISON: None. FINDINGS: Scattered gas is seen in non-distended small bowel loops. Gas and fecal material is seen in non-distended colon. There is no visceromegaly on x-ray, pneumoperitoneum, or abnormal calcification appreciated. The lung bases are clear and the osseous structures are intact. IMPRESSION: Nonobstructive bowel gas pattern.
[2019-05-18 13:17] LABS: Appearance,Urine Clear (Clear); Bilirubin,Urine Negative (Negative); Blood,Urine Negative (Negative); Color,Urine Light Yellow; Glucose,Urine (UA) Negative (Negative); Ketones,Urine Negative (Negative); Leukocyte Esterase,Urine Negative (Negative); Nitrite,Urine Negative (Negative); Protein,Urine Negative (Negative); Specific Gravity,Urine 1.005 (1.001-1.035); Urobilinogen,Urine <2.0 mg/dL (<2.0)
[2019-05-18 13:20] LABS: Basophils # (A) 0.1 k/uL (0-0.2); Basophils % (A) 1 %; Eosinophils # (A) 0.2 k/uL (0-0.7); Eosinophils % (A) 3 %; HCT 44.3 % (34.0-46.0); HGB 14.8 gm/dL (11.4-16.0); Lymphocytes # (A) 2.6 k/uL (1.0-4.8); Lymphocytes % (A) 38 %; MCH 31.3 pg (25.0-35.0); MCHC 33.3 g/dL (31.0-37.0); Mean Platelet Volume 8.5; Monocytes # (A) 0.3 k/uL (0-1.0); Monocytes % (A) 5 %; Neutrophils # (A) 3.5 k/uL (1.3-7.7); Neutrophils % (A) 51 %; Platelet Count 234 k/uL (150-450); RBC 4.71 m/uL (3.80-5.40); RDW 12.8 % (11.5-15.5); WBC 6.8 k/uL (3.8-10.6)
[2019-05-18 13:27] LABS: INR 0.9 (<1.2); Partial Thromboplastin Time 23.8 sec (22.0-30.0); Prothrombin Time 9.4 sec (9.0-12.0)
--- NOTE | 2019-05-18 13:37 | US ---
EXAMINATION TYPE: US gallbladder DATE OF EXAM: 05/18/2019 COMPARISON: 05/15/19 CLINICAL HISTORY: ruq pain. RUQ pain, nausea and vomiting, dizziness EXAM MEASUREMENTS: Liver Length: 15.3 cm Gallbladder Wall: 0.3 cm CBD: 0.4 cm Right Kidney: 10.8 x 4.4 x 5.0 cm Pancreas: limited evaluation due to overlying bowel content Liver: Similar periportal brightness. This could relate to technique. Gallbladder: no evidence of stones Evidence for sonographic Valle's sign: no CBD: wnl Right Kidney: no evidence of hydronephrosis or mass IMPRESSION: 1. No sonographic evidence of acute cholecystitis nor cholelithiasis. 2. Periportal brightness remains as seen on the prior ultrasound of 05/15/2019. Again this could relat e to hepatitis or technique in this patient with a stricture jaundice.
[2019-05-18 13:41] LABS: ALT 236 U/L (4-34); AST 63 U/L (14-36); African American GFR (CKD) >90 (>60 ml/min/1.73 sqM); Albumin 4.5 g/dL (3.5-5.0); Alkaline Phosphatase 180 U/L (38-126); Amylase 47 U/L (30-110); Anion Gap 8 mmol/L; Blood Urea Nitrogen 9 mg/dL (7-17); Calcium 9.4 mg/dL (8.4-10.2); Carbon Dioxide 26 mmol/L (22-30); Chloride 105 mmol/L (98-107); Glucose 91 mg/dL (74-99); Non-African American GFR(CKD) >90 (>60 ml/min/1.73 sqM); Potassium 4.6 mmol/L (3.5-5.1); Sodium 139 mmol/L (137-145); Total Bilirubin 0.6 mg/dL (0.2-1.3); Total Protein 7.7 g/dL (6.3-8.2)
[2019-05-18 14:28] VITALS: BP 134/82; PULSE 79; RESP 16; TEMP 98.1
== END 2019-05-18 14:26 | disposition home or self-care (01) ==
LOC: EC 11:47
DX: R10.11 Right upper quadrant pain (principal); R11.2 Nausea with vomiting, unspecified; F17.200 Nicotine dependence, unspecified, uncomplicated; Z91.048 Other nonmedicinal substance allergy status
CPT/HCPCS: 36415; 80053; 82150; 83690; 85025; 85610; 85730; 81003; 74018; 76705; 99284; 96374; 96375; 96361; J2765

== ENCOUNTER 2019-07-15 17:52 | Emergency (ER) | payer OTHER ==
[2019-07-15 18:02] VITALS: BP 111/68; PULSE 66; RESP 18; TEMP 97.6
[2019-07-15] MEDS ORDERED: SODIUM CHLORIDE 0.9% 1,000 ML IV ONE (18:46)
--- NOTE | 2019-07-15 19:05 | ED ---
General Adult HPI - General Chief complaint: Upper Respiratory Infection Stated complaint: Cough Time Seen by Provider: 07/15/19 18:18 Source: patient, RN notes reviewed, old records reviewed Mode of arrival: ambulatory Limitations: no limitations - History of Present Illness Initial comments: Patient is a 24-year-old female presents emergency Department stay with complaints of diarrhea for the past 3 days as well as cough. She reports that she's been exposed to somebody with Covid. Patient states that she has no significant past medical history. She is a smoker. She denies any specific nausea or vomiting. She is generalized muscle aches and fatigue. Patient is a smoker. - Related Data Previous Rx's Medication Instructions Recorded Albuterol Inhaler [Ventolin Hfa 1 puff INHALATION RT-QID #1 inhaler 07/15/19 Inhaler] Allergies Allergy/AdvReac Type Severity Reaction Status Date / Time adhesive tape AdvReac Rash/Hives Verified 07/15/19 18:02 Review of Systems ROS Statement: Those systems with pertinent positive or pertinent negative responses have been documented in the HPI. ROS Other: All systems not noted in ROS Statement are negative. Past Medical History Additional Past Medical History / Comment(s): Ectopic - left History of Any Multi-Drug Resistant Organisms: None Reported Additional Past Surgical History / Comment(s): tubal Past Anesthesia/Blood Transfusion Reactions: No Reported Reaction Past Psychological History: No Psychological Hx Reported Smoking Status: Current every day smoker Past Alcohol Use History: Rare Past Drug Use History: Marijuana General Exam - General Exam Comments Initial Comments: Well-appearing 24-year-old female. No distress. Limitations: no limitations General appearance: alert, in no apparent distress Head exam: Present: atraumatic, normocephalic, normal inspection Eye exam: Present: normal appearance, PERRL, EOMI. Absent: scleral icterus, conjunctival injection, periorbital swelling ENT exam: Present: normal exam, mucous membranes moist Neck exam: Present: normal inspection. Absent: tenderness, meningismus, lymphadenopathy Respiratory exam: Present: normal lung sounds bilaterally. Absent: respiratory distress, wheezes, rales, rhonchi, stridor Cardiovascular Exam: Present: regular rate, normal rhythm, normal heart sounds. Absent: systolic murmur, diastolic murmur, rubs, gallop, clicks GI/Abdominal exam: Present: soft, normal bowel sounds. Absent: distended, tenderness, guarding, rebound, rigid Extremities exam: Present: normal inspection, full ROM, normal capillary refill. Absent: tenderness, pedal edema, joint swelling, calf tenderness Back exam: Present: normal inspection Neurological exam: Present: alert, oriented X3, CN II-XII intact Psychiatric exam: Present: normal affect, normal mood Skin exam: Present: warm, dry, intact, normal color. Absent: rash Course Vital Signs 07/15/19 07/15/19 17:57 19:18 Temperature 97.6 F Pulse Rate 66 Respiratory 18 18 Rate Blood Pressure 111/68 O2 Sat by Pulse 99 Oximetry Medical Decision Making - Medical Decision Making 24-year-old female presents range from 73 did stab diarrhea and dry cough. Patient is concerned for possible Covid exposure. At this time Patient I'll signs are stable. Patient appears in no acute distress. Patient's labs reviewed and unremarkable. Chest x-ray is negative for any acute process. She was off it for swab for Covid discussed these results will be available in 24 hours. Patient is resting comfortable he been on reevaluation appears in no distress. Discussed Patient needs to quit smoking which is likely due to an injury dry cough and advised clear liquid diet for the diarrhea. Discussed the Patient should self 14 at this time until can for confirmation of Covid. - Lab Data Result diagrams: 07/15/19 19:10 07/15/19 19:10 Lab Results 07/15/19 07/15/19 07/15/19 Range/Units 19:10 19:10 19:10 WBC 9.2 (3.8-10.6) k/uL RBC 4.69 (3.80-5.40) m/uL Hgb 14.4 (11.4-16.0) gm/dL Hct 43.9 (34.0-46.0) % MCV 93.6 (80.0-100.0) fL MCH 30.8 (25.0-35.0) pg MCHC 32.9 (31.0-37.0) g/dL RDW 13.1 (11.5-15.5) % Plt Count 236 (150-450) k/uL Neutrophils % 69 % Lymphocytes % 24 % Monocytes % 4 % Eosinophils % 1 % Basophils % 0 % Neutrophils # 6.3 (1.3-7.7) k/uL Lymphocytes # 2.2 (1.0-4.8) k/uL Monocytes # 0.4 (0-1.0) k/uL Eosinophils # 0.1 (0-0.7) k/uL Basophils # 0.0 (0-0.2) k/uL PT (9.0-12.0) sec INR (<1.2) APTT (22.0-30.0) sec Sodium 139 (137-145) mmol/L Potassium 4.9 (3.5-5.1) mmol/L Chloride 108 H (98-107) mmol/L Carbon Dioxide 24 (22-30) mmol/L Anion Gap 7 mmol/L BUN 9 (7-17) mg/dL Creatinine 0.76 (0.52-1.04) mg/dL Est GFR (CKD-EPI)AfAm >90 (>60 ml/min/1.73 sqM) Est GFR (CKD-EPI)NonAf >90 (>60 ml/min/1.73 sqM) Glucose 92 (74-99) mg/dL Plasma Lactic Acid Jose 0.8 (0.7-2.0) mmol/L Calcium 9.5 (8.4-10.2) mg/dL Magnesium 2.1 (1.6-2.3) mg/dL Total Bilirubin 0.5 (0.2-1.3) mg/dL AST 19 (14-36) U/L ALT 12 (4-34) U/L Alkaline Phosphatase 66 (38-126) U/L Lactate Dehydrogenase 359 (313-618) U/L C-Reactive Protein 5.2 (<10.0) mg/L Total Protein 8.1 (6.3-8.2) g/dL Albumin 4.7 (3.5-5.0) g/dL 07/15/19 Range/Units 19:26 WBC (3.8-10.6) k/uL RBC (3.80-5.40) m/uL Hgb (11.4-16.0) gm/dL Hct (34.0-46.0) % MCV (80.0-100.0) fL MCH (25.0-35.0) pg MCHC (31.0-37.0) g/dL RDW (11.5-15.5) % Plt Count (150-450) k/uL Neutrophils % % Lymphocytes % % Monocytes % % Eosinophils % % Basophils % % Neutrophils # (1.3-7.7) k/uL Lymphocytes # (1.0-4.8) k/uL Monocytes # (0-1.0) k/uL Eosinophils # (0-0.7) k/uL Basophils # (0-0.2) k/uL PT 10.2 (9.0-12.0) sec INR 1.0 (<1.2) APTT 25.0 (22.0-30.0) sec Sodium (137-145) mmol/L Potassium (3.5-5.1) mmol/L Chloride (98-107) mmol/L Carbon Dioxide (22-30) mmol/L Anion Gap mmol/L BUN (7-17) mg/dL Creatinine (0.52-1.04) mg/dL Est GFR (CKD-EPI)AfAm (>60 ml/min/1.73 sqM) Est GFR (CKD-EPI)NonAf (>60 ml/min/1.73 sqM) Glucose (74-99) mg/dL Plasma Lactic Acid Jose (0.7-2.0) mmol/L Calcium (8.4-10.2) mg/dL Magnesium (1.6-2.3) mg/dL Total Bilirubin (0.2-1.3) mg/dL AST (14-36) U/L ALT (4-34) U/L Alkaline Phosphatase (38-126) U/L Lactate Dehydrogenase (313-618) U/L C-Reactive Protein (<10.0) mg/L Total Protein (6.3-8.2) g/dL Albumin (3.5-5.0) g/dL Disposition Clinical Impression: Diarrhea, Cough Disposition: HOME SELF-CARE Condition: Good Instructions (If sedation given, give patient instructions): Upper Respiratory Infection (ED) Additional Instructions: Covid 19 results will be available in 24 hours. Patient should self quarantine with any symptoms at this time. Recommended a clear liquid diet. Using inhaler to help with cough. Patient should stop smoking. Prescriptions: Albuterol Inhaler [Ventolin Hfa Inhaler] 1 puff INHALATION RT-QID #1 inhaler Is patient prescribed a controlled substance at d/c from ED?: No Referrals: Dina Wooten DO [Primary Care Provider] - 1-2 days Time of Disposition: 20:08
[2019-07-15 19:26] LABS: Basophils % (A) 0 %; Eosinophils # (A) 0.1 k/uL (0-0.7); Eosinophils % (A) 1 %; HCT 43.9 % (34.0-46.0); HGB 14.4 gm/dL (11.4-16.0); Lymphocytes # (A) 2.2 k/uL (1.0-4.8); Lymphocytes % (A) 24 %; MCH 30.8 pg (25.0-35.0); MCHC 32.9 g/dL (31.0-37.0); MCV 93.6 fL (80.0-100.0); Monocytes # (A) 0.4 k/uL (0-1.0); Monocytes % (A) 4 %; Neutrophils # (A) 6.3 k/uL (1.3-7.7); Neutrophils % (A) 69 %; Platelet Count 236 k/uL (150-450); RBC 4.69 m/uL (3.80-5.40); RDW 13.1 % (11.5-15.5); WBC 9.2 k/uL (3.8-10.6)
--- NOTE | 2019-07-15 19:38 | XR ---
EXAMINATION TYPE: XR chest 1V portable DATE OF EXAM: 07/15/2019 COMPARISON: 09/25/2018 HISTORY: Cough, chills, and diarrhea TECHNIQUE: Single frontal view of the chest is obtained. FINDINGS: There is no focal air space opacity, pleural effusion, or pneumothorax seen. The cardiac silhouette size is within normal limits. The osseous structures are intact. IMPRESSION: No acute process.
[2019-07-15 19:42] LABS: Prothrombin Time 10.2 sec (9.0-12.0)
[2019-07-15 19:45] LABS: ALT 12 U/L (4-34); AST 19 U/L (14-36); African American GFR (CKD) >90 (>60 ml/min/1.73 sqM); Albumin 4.7 g/dL (3.5-5.0); Alkaline Phosphatase 66 U/L (38-126); Anion Gap 7 mmol/L; Blood Urea Nitrogen 9 mg/dL (7-17); C Reactive Protein 5.2 mg/L (<10.0); Calcium 9.5 mg/dL (8.4-10.2); Carbon Dioxide 24 mmol/L (22-30); Chloride 108 mmol/L (98-107); Glucose 92 mg/dL (74-99); LDH 359 U/L (313-618); Magnesium 2.1 mg/dL (1.6-2.3); Non-African American GFR(CKD) >90 (>60 ml/min/1.73 sqM); Potassium 4.9 mmol/L (3.5-5.1); Sodium 139 mmol/L (137-145); Total Bilirubin 0.5 mg/dL (0.2-1.3); Total Protein 8.1 g/dL (6.3-8.2)
== END 2019-07-15 20:18 | disposition home or self-care (01) ==
LOC: EC 17:52
DX: Z03.818 Encounter for observation for suspected exposure to other biological agents ruled out (principal); R05 Cough; R19.7 Diarrhea, unspecified; R53.83 Other fatigue; M79.10 Myalgia, unspecified site; F17.200 Nicotine dependence, unspecified, uncomplicated; Z91.048 Other nonmedicinal substance allergy status
CPT/HCPCS: 36415; 80053; 83605; 83615; 83735; 85025; 85610; 85730; 86140; 84145; 71045; 99284; 96360; U0003

== ENCOUNTER 2019-09-22 21:42 | Emergency (ER) | payer OTHER ==
[2019-09-22] MEDS ORDERED: ALBUTEROL NEBULIZED 2.5 MG/3 ML INHALATION STA (22:39)
--- NOTE | 2019-09-22 22:42 | ED ---
URI HPI - General Chief Complaint: Upper Respiratory Infection Stated Complaint: SOB, nausea, cough Time Seen by Provider: 09/22/19 22:02 Source: patient Mode of arrival: ambulatory Limitations: no limitations - History of Present Illness Initial Comments: This patient is 24-year-old woman presenting with upper respiratory symptoms. She states that things began approximately 3-4 days ago with nasal drainage and congestion. The following day she developed cough which is for most part nonproductive and she also then developed a little bit of shortness of breath over the following 2 days. Patient not aware of fever or chills. Review of systems also showed that she had 2 loose bowel movements. MD Complaint: cough, nasal congestion Onset/Timin -: days(s) Consistency: constant Improves With: nothing Worsens With: nothing Context: sick contacts Associated Symptoms: rhinorrhea, nasal congestion, cough, shortness of breath Treatments Prior to Arrival: none - Related Data Previous Rx's Medication Instructions Recorded Albuterol Inhaler [Ventolin Hfa 1 puff INHALATION RT-QID #1 inhaler 07/15/19 Inhaler] Albuterol Inhaler [Ventolin Hfa 2 puff INHALATION Q4HR PRN #1 09/22/19 Inhaler] inhaler predniSONE 60 mg PO DAILY #30 tab 09/22/19 Allergies Allergy/AdvReac Type Severity Reaction Status Date / Time adhesive tape AdvReac Rash/Hives Verified 09/22/19 21:51 Review of Systems ROS Statement: Those systems with pertinent positive or pertinent negative responses have been documented in the HPI. ROS Other: All systems not noted in ROS Statement are negative. Constitutional: Denies: fever, chills ENT: Reports: congestion. Denies: ear pain, throat pain Respiratory: Reports: cough, dyspnea, wheezes Cardiovascular: Denies: chest pain, palpitations, edema Gastrointestinal: Reports: diarrhea. Denies: abdominal pain, nausea, vomiting Genitourinary: Denies: dysuria, hematuria Skin: Denies: rash Neurological: Denies: headache Past Medical History Past Medical History: COPD Additional Past Medical History / Comment(s): Ectopic - left History of Any Multi-Drug Resistant Organisms: None Reported Additional Past Surgical History / Comment(s): tubal Past Anesthesia/Blood Transfusion Reactions: No Reported Reaction Past Psychological History: No Psychological Hx Reported Smoking Status: Current every day smoker Past Alcohol Use History: Rare Past Drug Use History: Marijuana General Exam Limitations: no limitations General appearance: alert, in no apparent distress Head exam: Present: atraumatic, normocephalic Eye exam: Present: normal appearance. Absent: scleral icterus, conjunctival injection ENT exam: Present: normal oropharynx Neck exam: Present: normal inspection, full ROM Respiratory exam: Present: wheezes. Absent: respiratory distress, rales, rhonchi, stridor Cardiovascular Exam: Present: regular rate, normal rhythm, normal heart sounds. Absent: systolic murmur, diastolic murmur, rubs, gallop GI/Abdominal exam: Present: soft. Absent: distended, tenderness, guarding, rebound, rigid, mass Extremities exam: Present: normal inspection, normal capillary refill. Absent: pedal edema, calf tenderness Back exam: Present: normal inspection. Absent: CVA tenderness (R), CVA tenderness (L) Neurological exam: Present: alert Skin exam: Present: warm, dry, intact, normal color. Absent: rash Course Vital Signs 09/22/19 09/22/19 09/22/19 21:49 21:54 23:09 Temperature 99.0 F Pulse Rate 79 64 Respiratory 20 16 Rate Blood Pressure 138/90 O2 Sat by Pulse 98 Oximetry Disposition Clinical Impression: Acute upper respiratory infection, Bronchitis Narrative: Possible covid 19 infection Disposition: HOME SELF-CARE Condition: Good Instructions (If sedation given, give patient instructions): Upper Respiratory Infection (ED) Prescriptions: predniSONE 60 mg PO DAILY #30 tab Albuterol Inhaler [Ventolin Hfa Inhaler] 2 puff INHALATION Q4HR PRN #1 inhaler PRN Reason: Wheezing Is patient prescribed a controlled substance at d/c from ED?: No Referrals: Dina Wooten DO [Primary Care Provider] - 1-2 days
--- NOTE | 2019-09-22 22:58 | XR ---
EXAMINATION TYPE: XR chest 2V DATE OF EXAM: 09/22/2019 COMPARISON: 07/15/2019 HISTORY: Cough. TECHNIQUE: FINDINGS: Heart and mediastinum are normal. Lungs are clear. Diaphragm is normal. Bony thorax appears normal. IMPRESSION: Normal chest. No change.
[2019-09-22 23:31] VITALS: BP 135/81; PULSE 90; RESP 18; TEMP 98.2
== END 2019-09-22 23:31 | disposition home or self-care (01) ==
LOC: EC 21:42
DX: J06.9 Acute upper respiratory infection, unspecified (principal); J40 Bronchitis, not specified as acute or chronic; F17.200 Nicotine dependence, unspecified, uncomplicated; Z91.048 Other nonmedicinal substance allergy status; Z87.09 Personal history of other diseases of the respiratory system
CPT/HCPCS: 71046; 94640; 99285

== ENCOUNTER 2020-05-21 22:11 | Emergency (ER) | payer OTHER ==
[2020-05-21 23:20] VITALS: BP 137/94; PULSE 81; RESP 16; TEMP 98
--- NOTE | 2020-05-22 00:55 | ED ---
Headache HPI - General Chief Complaint: Headache Stated Complaint: Covid symptoms Time Seen by Provider: 05/22/20 00:52 Source: RN notes reviewed, old records reviewed Mode of arrival: ambulatory Limitations: no limitations - History of Present Illness Initial Comments: This is a 25-year-old female DF for evaluation. Patient didn't stay for multiple complaints. Patient is no medical history takes no medications no recent travel history or sick contacts or fevers. Patient presents today for evaluation regards to not feeling well. Patient does have known positive coronavirus exposure concern for possible coronavirus and comes DF for evaluation. Patient is complaining of headache sore throat runny nose generalized body aches and pains MD Complaint: headache, other (Sore throat and cough) -: hour(s) Onset Description: gradual Severity: mild Severity scale (1-10): 1 Quality: throbbing Improves With: nothing Worsens With: none Context: recent URI Associated Symptoms: nausea Other Symptoms: cough, malaise Treatments Prior to Arrival: none - Related Data Previous Rx's Medication Instructions Recorded Albuterol Inhaler [Ventolin Hfa 1 puff INHALATION RT-QID #1 inhaler 07/15/19 Inhaler] Albuterol Inhaler [Ventolin Hfa 2 puff INHALATION Q4HR PRN #1 09/22/19 Inhaler] inhaler predniSONE 60 mg PO DAILY #30 tab 09/22/19 Allergies Allergy/AdvReac Type Severity Reaction Status Date / Time adhesive tape AdvReac Rash/Hives Verified 05/21/20 23:17 Review of Systems ROS Statement: Those systems with pertinent positive or pertinent negative responses have been documented in the HPI. ROS Other: All systems not noted in ROS Statement are negative. Past Medical History Past Medical History: No Reported History Additional Past Medical History / Comment(s): Ectopic - left History of Any Multi-Drug Resistant Organisms: None Reported Additional Past Surgical History / Comment(s): tubal Past Anesthesia/Blood Transfusion Reactions: No Reported Reaction Past Psychological History: No Psychological Hx Reported Smoking Status: Current every day smoker Past Alcohol Use History: Occasional Past Drug Use History: Marijuana General Exam Limitations: no limitations General appearance: alert, in no apparent distress Head exam: Present: atraumatic, normocephalic, normal inspection Eye exam: Present: normal appearance, PERRL, EOMI. Absent: scleral icterus, conjunctival injection, periorbital swelling ENT exam: Present: normal exam, mucous membranes moist Neck exam: Present: normal inspection. Absent: tenderness, meningismus, lymphadenopathy Respiratory exam: Present: normal lung sounds bilaterally. Absent: respiratory distress, wheezes, rales, rhonchi, stridor Cardiovascular Exam: Present: regular rate, normal rhythm, normal heart sounds. Absent: systolic murmur, diastolic murmur, rubs, gallop, clicks GI/Abdominal exam: Present: soft, normal bowel sounds. Absent: distended, tenderness, guarding, rebound, rigid Extremities exam: Present: normal inspection, full ROM, normal capillary refill. Absent: tenderness, pedal edema, joint swelling, calf tenderness Back exam: Present: normal inspection Neurological exam: Present: alert, oriented X3, CN II-XII intact Psychiatric exam: Present: normal affect, normal mood Skin exam: Present: warm, dry, intact, normal color. Absent: rash Course Vital Signs 05/21/20 23:17 Temperature 98.0 F Pulse Rate 81 Respiratory 16 Rate Blood Pressure 137/94 O2 Sat by Pulse 98 Oximetry - Reevaluation(s) Reevaluation #1: 05/22/20 00:53 Medical records reviewed Reevaluation #2: 05/22/20 00:54 Patient informed of results, negative coronavirus test. Patient can be discharged home Medical Decision Making - Medical Decision Making 25 female with multiple complaints, patient complains of nonspecific symptoms regarding covert exposure. Patient's coronavirus test is negative today. Patient will be discharged home - Lab Data Lab Results 05/21/20 Range/Units 23:20 Coronavirus (PCR) Not Detected (Not Detectd) Disposition Clinical Impression: Viral syndrome Disposition: HOME SELF-CARE Condition: Good Instructions (If sedation given, give patient instructions): Acute Headache (ED) Is patient prescribed a controlled substance at d/c from ED?: No Referrals: Dina Wooten DO [Primary Care Provider] - 1-2 days
== END 2020-05-22 01:19 | disposition home or self-care (01) ==
LOC: EC 22:11
DX: B34.9 Viral infection, unspecified (principal); F17.200 Nicotine dependence, unspecified, uncomplicated; Z20.822 Contact with and (suspected) exposure to COVID-19; Z91.048 Other nonmedicinal substance allergy status
CPT/HCPCS: 87635; 99284

== ENCOUNTER 2020-11-21 14:00 | Emergency (ER) | payer OTHER ==
[2020-11-21 14:47] VITALS: BP 113/73; PULSE 108; RESP 16; TEMP 97.9
--- NOTE | 2020-11-21 16:02 | ED ---
URI HPI - General Chief Complaint: Upper Respiratory Infection Stated Complaint: Headache,Fever Time Seen by Provider: 11/21/20 15:56 Source: patient, RN notes reviewed Mode of arrival: ambulatory Limitations: no limitations - History of Present Illness Initial Comments: 25-year-old female presents emergency from chief complaint of fever cough congestion body aches. Symptoms started last 4-5 days. She's had headaches at home she has felt that she's had a fever feeling hot and cold. Patient's had increasing congestion, ear pressure. Patient possibly had exposure at work. Denies any major GI symptoms. Otherwise no specific past medical history. - Related Data Previous Rx's Medication Instructions Recorded Amoxicillin/Potassium Clav 1 tab PO Q12HR #20 tab 11/21/20 [Augmentin 875-125 Tablet] predniSONE 50 mg PO DAILY #5 tab 11/21/20 Allergies Allergy/AdvReac Type Severity Reaction Status Date / Time adhesive tape AdvReac Rash/Hives Verified 11/21/20 16:30 Review of Systems ROS Statement: Those systems with pertinent positive or pertinent negative responses have been documented in the HPI. ROS Other: All systems not noted in ROS Statement are negative. Past Medical History Past Medical History: No Reported History Additional Past Medical History / Comment(s): Ectopic - left History of Any Multi-Drug Resistant Organisms: None Reported Additional Past Surgical History / Comment(s): tubal Past Anesthesia/Blood Transfusion Reactions: No Reported Reaction Past Psychological History: No Psychological Hx Reported Smoking Status: Current every day smoker Past Alcohol Use History: Occasional Past Drug Use History: Marijuana General Exam Limitations: no limitations General appearance: alert, in no apparent distress Head exam: Present: atraumatic, normocephalic, normal inspection Eye exam: Present: normal appearance, PERRL, EOMI. Absent: scleral icterus, conjunctival injection, periorbital swelling ENT exam: Present: normal exam, normal oropharynx, mucous membranes moist Neck exam: Present: normal inspection, full ROM. Absent: tenderness, meningismus, lymphadenopathy Respiratory exam: Present: normal lung sounds bilaterally. Absent: respiratory distress, wheezes, rales, rhonchi, stridor Cardiovascular Exam: Present: regular rate, normal rhythm, normal heart sounds. Absent: systolic murmur, diastolic murmur, rubs, gallop, clicks Neurological exam: Present: alert, oriented X3 Skin exam: Present: warm, dry, intact, normal color. Absent: rash Course Vital Signs 11/21/20 14:45 Temperature 97.9 F Pulse Rate 108 H Respiratory 16 Rate Blood Pressure 113/73 O2 Sat by Pulse 97 Oximetry Medical Decision Making - Medical Decision Making 25-year-old female presents emergency from chief complaint of fever cough congestion. Patient is COVID-19 is negative. Patient said facial pressure, increasing congestion, wheezing we discharged with antibiotics, steroids return parameters discussed. - Lab Data Lab Results 11/21/20 Range/Units 16:11 Coronavirus (PCR) Not Detected (Not Detectd) Disposition Clinical Impression: Acute upper respiratory infection, Otitis media Disposition: HOME SELF-CARE Condition: Stable Instructions (If sedation given, give patient instructions): Upper Respiratory Infection (ED) Additional Instructions: Please return to the Emergency Department if symptoms worsen or any other concerns. Prescriptions: Amoxicillin/Potassium Clav [Augmentin 875-125 Tablet] 1 tab PO Q12HR #20 tab predniSONE 50 mg PO DAILY #5 tab Is patient prescribed a controlled substance at d/c from ED?: No Referrals: Dina Wooten DO [Primary Care Provider] - 1-2 days Time of Disposition: 16:46
== END 2020-11-21 16:55 | disposition home or self-care (01) ==
LOC: EC 14:00
DX: J06.9 Acute upper respiratory infection, unspecified (principal); H66.90 Otitis media, unspecified, unspecified ear; F17.200 Nicotine dependence, unspecified, uncomplicated; Z91.09 Other allergy status, other than to drugs and biological substances; Z20.822 Contact with and (suspected) exposure to COVID-19
CPT/HCPCS: 87635; 99283

== ENCOUNTER 2023-05-13 20:18 | Emergency (ER) | payer OTHER ==
[2023-05-13 20:52] VITALS: RESP 18; TEMP 98.2
--- NOTE | 2023-05-13 22:13 | ED ---
General Adult HPI - General Chief complaint: Burn/Smoke Inhalation Stated complaint: [facility] - Grease Burn on hand and face Time Seen by Provider: 05/13/23 21:01 Source: patient Mode of arrival: ambulatory Limitations: no limitations - History of Present Illness Initial comments: 28-year-old female presenting to the ED with a chief complaint of burn. 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 States that during this her right third and second finger accidentally slipped into the fryer while he was warm causing warm oil to burn her right third and second fingers and also caused oil to splash on top of the back of her left wrist and onto the right side of her face lateral to the lips. No other injuries at this time. Tetanus status unknown. No other complaints at this time. - Related Data Previous Rx's Medication Instructions Recorded Amoxicillin/Potassium Clav 1 tab PO Q12HR #20 tab 11/21/20 [Augmentin 875-125 Tablet] predniSONE 50 mg PO DAILY #5 tab 11/21/20 Allergies Allergy/AdvReac Type Severity Reaction Status Date / Time adhesive tape AdvReac Rash/Hives Verified 05/13/23 20:32 Review of Systems ROS Statement: Those systems with pertinent positive or pertinent negative responses have been documented in the HPI. ROS Other: All systems not noted in ROS Statement are negative. Past Medical History Past Medical History: No Reported History Additional Past Medical History / Comment(s): Ectopic - left History of Any Multi-Drug Resistant Organisms: None Reported Additional Past Surgical History / Comment(s): tubal Past Anesthesia/Blood Transfusion Reactions: No Reported Reaction Past Psychological History: No Psychological Hx Reported Smoking Status: Current every day smoker Past Alcohol Use History: Occasional Past Drug Use History: Marijuana General Exam Limitations: no limitations General appearance: alert, in no apparent distress Eye exam: Present: normal appearance Neck exam: Present: normal inspection Respiratory exam: Present: normal lung sounds bilaterally Cardiovascular Exam: Present: regular rate, normal rhythm GI/Abdominal exam: Present: soft Skin exam: Present: other (Superficial valentine to the right third and second finger, dorsal aspect of the left wrist, and on the face with some erythema. No blister formations. These valentine appear consistent with superficial valentine.) Course Vital Signs 05/13/23 20:30 Temperature 98.2 F Pulse Rate 81 Respiratory 18 Rate Blood Pressure 149/88 O2 Sat by Pulse 100 Oximetry Medical Decision Making - Medical Decision Making Was pt. sent in by a medical professional or institution (VAISHALI Lindquist, BULK PLANT OPERATOR, urgent ca re, hospital, or care home...) When possible be specific @ -No Did you speak to anyone other than the patient for history (EMS, parent, family, police, friend...)? What history was obtained from this source @ -No Did you review nursing and triage notes (agree or disagree)? Why? @ -I reviewed and agree with nursing and triage notes Were old charts reviewed (outside hosp., previous admission, EMS record, old EKG, old radiological studies, urgent care reports/EKG's, care home records)? Report findings @ -No old charts were reviewed Differential Diagnosis (chest pain, altered mental status, abdominal pain women, abdominal pain men, vaginal bleeding, weakness, fever, dyspnea, syncope, headache, dizziness, GI bleed, back pain, seizure, CVA, palpatations, mental health, musculoskeletal)? @ -Superficial, superficial partial, deep partial, full-thickness valentine. This is not meant to be an all-inclusive list. EKG interpreted by me (3pts min.). @ -None X-rays interpreted by me (1pt min.). @ -None done CT interpreted by me (1pt min.). @ -None done U/S interpreted by me (1pt. min.). @ -None done What testing was considered but not performed or refused? (CT, X-rays, U/S, labs)? Why? @ -None What meds were considered but not given or refused? Why? @ -None Did you discuss the management of the patient with other professionals (professionals i.e. VAISHALI Lindquist, B[employer]K [employer]ANT OPERATOR, lab, RT, psych nurse, social worker assistant, gold frame assembler, teacher, correctional officer, rehabilitation caseworker)? Give summary @ -No Was smoking cessation discussed for >3mins.? @ -No Was critical care preformed (if so, how long)? @ -No Were there social determinants of health that impacted care today? How? (Homelessness, low income, unemployed, alcoholism, drug addiction, transportation, low edu. Level, literacy, decrease access to med. care, fpc, rehab)? @ -No Was there de-escalation of care discussed even if they declined (Discuss DNR or withdrawal of care, Hospice)? DNR status @ -No What co-morbidities impacted this encounter? (DM, HTN, Smoking, COPD, CAD, Cancer, CVA, ARF, Chemo, Hep., AIDS, mental health diagnosis, sleep apnea, morbid obesity)? @ -None Was patient admitted / discharged? Hospital course, mention meds given and route, prescriptions, significant lab abnormalities, going to OR and other pertinent info. @ -Discharge 28-year-old female presenting to the ED after contact with warm oil now noting valentine to her right third and fourth finger, dorsal aspect of left wrist, and on the right side of her face. On examination, these valetnine appear superficial in nature with some erythema, no blister formation, and blanches with pressure. Affected fingers show good capillary refill. These were covered with bacitracin. Advised on burn care. Tetanus updated. Discharged home in stable condition. Discussed return precautions with patient who verbalized agreement. Undiagnosed new problem with uncertain prognosis? @ -No Drug Therapy requiring intensive monitoring for toxicity (Heparin, Nitro, Insulin, Cardizem)? @ -No Were any procedures done? @ -No Diagnosis/symptom? @ -Superficial burn Acute, or Chronic, or Acute on Chronic? @ -Acute Uncomplicated (without systemic symptoms) or Complicated (systemic symptoms)? @ -Uncomplicated Side effects of treatment? @ -No Exacerbation, Progression, or Severe Exacerbation? @ -No Poses a threat to life or bodily function? How? (Chest pain, [place], [place], pneumonia, PE, COPD, DKA, ARF, appy, cholecystitis, CVA, Diverticulitis, Homicidal, Suicidal, threat to staff... and all critical care pts) @ -No Disposition Clinical Impression: Superficial burn Disposition: HOME SELF-CARE Condition: Good Instructions (If sedation given, give patient instructions): Superficial Burn (ED) Additional Instructions: Please return to the Emergency Department if symptoms worsen or any other concerns. Please follow-up with your PCP or [facility]. Is patient prescribed a controlled substance at d/c from ED?: No Referrals: Dina Wooten DO [Primary Care Provider] - 1-2 days Time of Disposition: 22:24
[2023-05-13] MEDS: DIPH,PERTUS(ACELL)TETVAC-LF 0.5 ML VIAL IM ONE (22:27)
[2023-05-13] MEDS: ACETAMINOPHEN TAB 500 MG TAB PO STA (22:28)
[2023-05-13 23:07] VITALS: BP 130/80; PULSE 80
== END 2023-05-13 22:36 | disposition home or self-care (01) ==
LOC: EC 20:18
DX: T23.331A Burn of third degree of multiple right fingers (nail), not including thumb, initial encounter (principal); T23.221A Burn of second degree of single right finger (nail) except thumb, initial encounter; T23.172A Burn of first degree of left wrist, initial encounter; T20.10XA Burn of first degree of head, face, and neck, unspecified site, initial encounter; F17.200 Nicotine dependence, unspecified, uncomplicated; Z91.048 Other nonmedicinal substance allergy status; Z23 Encounter for immunization; X10.2XXA Contact with fats and cooking oils, initial encounter; Y92.000 Kitchen of unspecified non-institutional (private) residence as the place of occurrence of the external cause
CPT/HCPCS: 90471; 90715; 99283

== ENCOUNTER 2023-07-17 06:49 | Emergency (ER) | payer OTHER ==
--- NOTE | 2023-07-17 07:17 | ED ---
Female Urogenital HPI - General Chief complaint: Vaginal Bleeding Stated complaint: abd pain Time Seen by Provider: 07/17/23 07:14 Source: patient, RN notes reviewed Mode of arrival: ambulatory - History of Present Illness Initial comments: 28-year-old female presented to the ER with a chief complaint of lower abdominal pain. She reports a crampy abdominal pain for the past week which has intensified the past 24 hours with associated vaginal spotting. Patient reports last night pain turned into a sharp persistent right lower quadrant/suprapubic abdominal pain. She states her last menstrual cycle was 06-01-2023 and there is a possibility of . She states it has been difficult for her to urinate or have a bowel movement due to the pain. Patient admits to chills and nausea. Denies any known fevers. Patient states she has a history of an ectopic and this pain feels similar. She denies any chest pain, shortness of breath or peripheral edema. - Related Data Home Medications Medication Instructions Recorded Confirmed No Known Home Medications 07/17/23 07/17/23 Allergies Allergy/AdvReac Type Severity Reaction Status Date / Time adhesive tape Allergy Rash/Hives Verified 07/17/23 09:29 Review of Systems ROS Statement: Those systems with pertinent positive or pertinent negative responses have been documented in the HPI. ROS Other: All systems not noted in ROS Statement are negative. Past Medical History Past Medical History: No Reported History Additional Past Medical History / Comment(s): Ectopic - left History of Any Multi-Drug Resistant Organisms: None Reported Additional Past Surgical History / Comment(s): tubal Past Anesthesia/Blood Transfusion Reactions: No Reported Reaction Past Psychological History: No Psychological Hx Reported Smoking Status: Current every day smoker Past Alcohol Use History: Occasional Past Drug Use History: Marijuana General Exam General appearance: alert, in no apparent distress Respiratory exam: Present: normal lung sounds bilaterally. Absent: respiratory distress, wheezes, rales, rhonchi, stridor Cardiovascular Exam: Present: regular rate, normal rhythm, normal heart sounds. Absent: systolic murmur, diastolic murmur, rubs, gallop, clicks GI/Abdominal exam: Present: soft, tenderness (Right lower quadrant), normal bowel sounds Extremities exam: Present: normal inspection, full ROM, normal capillary refill. Absent: tenderness, pedal edema, joint swelling, calf tenderness Skin exam: Present: warm, dry, intact, normal color. Absent: rash Course Vital Signs 07/17/23 07/17/23 07/17/23 06:50 08:53 09:00 Temperature 98.8 F Pulse Rate 77 73 75 Respiratory 19 22 20 Rate Blood Pressure 138/95 125/93 125/93 O2 Sat by Pulse 98 100 100 Oximetry 07/17/23 07/17/23 07/17/23 09:30 10:00 10:59 Temperature 98.4 F Pulse Rate 76 66 61 Respiratory 20 20 22 Rate Blood Pressure 138/88 126/73 125/78 O2 Sat by Pulse 100 100 100 Oximetry 07/17/23 07/17/23 07/17/23 11:00 11:48 12:00 Temperature Pulse Rate 69 60 65 Respiratory 20 18 20 Rate Blood Pressure 125/78 107/63 107/63 O2 Sat by Pulse 99 100 98 Oximetry 07/17/23 13:00 Temperature Pulse Rate 69 Respiratory 20 Rate Blood Pressure 113/67 O2 Sat by Pulse 98 Oximetry - Reevaluation(s) Reevaluation #1: 07/17/23 12:[address] Scherer who states she will evaluate patient in ER. Plan on possible surgical intervention and to keep patient NPO. Medical Decision Making - Medical Decision Making Was pt. sent in by a medical professional or institution (VAISHALI Lindquist, GREEN MEAT GRADER, urgent care, hospital, or skilled nursing...) When possible be specific @ -No Did you speak to anyone other than the patient for history (EMS, parent, family, police, friend...)? What history was obtained from this source @ -No Did you review nursing and triage notes (agree or disagree)? Why? @ -I reviewed and agree with nursing and triage notes Were old charts reviewed (outside hosp., previous admission, EMS record, old EKG, old radiological studies, urgent care reports/EKG's, skilled nursing records)? Report findings @ -No old charts were reviewed Differential Diagnosis (chest pain, altered mental status, abdominal pain women, abdominal pain men, vaginal bleeding, weakness, fever, dyspnea, syncope, headache, dizziness, GI bleed, back pain, seizure, CVA, palpatations, mental health, musculoskeletal)? @ -Differential Vaginal Bleeding: Spontaneous , threatened , molar , ectopic , bloody show, incompetent cervix, abruptioplacenta, placenta previa, uterine rupture, dysfunctional uterine bleeding, hemorrhage, uterine fibroids, this is not meant to be an all-inclusive list. EKG interpreted by me (3pts min.). @ -None X-rays interpreted by me (1pt min.). @ -None done CT interpreted by me (1pt min.). @ -None done U/S interpreted by me (1pt. min.). @ -Transvaginal ultrasound significant for a ectopic in the left adnexal region. Yolk sac, pole, and cardiac activity identified. Gestational age approximately 6 weeks 4 days. What testing was considered but not performed or refused? (CT, X-rays, U/S, labs)? Why? @ -None What meds were considered but not given or refused? Why? @ -None Did you discuss the management of the patient with other professionals (professionals i.e. , PA, GREEN MEAT GRADER, lab, RT, psych nurse, director of social media marketing, motor equipment lieutenant, teacher, special weapons and tactics officer, medical case worker)? Give summary @ -Yes, case discussed with Dr. Scherer who stated to keep patient NPO for possible surgical intervention. She evaluated patient in the ER and will continue with surgical intervention. Was smoking cessation discussed for >3mins.? @ -No Was critical care preformed (if so, how long)? @ -No Were there social determinants of health that impacted care today? How? (Homelessness, low income, unemployed, alcoholism, drug addiction, transportation, low edu. Level, literacy, decrease access to med. care, residential, rehab)? @ -Patient does not normally follow-up with VIDEO GAME SCRIPT WRITER Was there de-escalation of care discussed even if they declined (Discuss DNR or withdrawal of care, Hospice)? DNR status @ -No What co-morbidities impacted this encounter? (DM, HTN, Smoking, COPD, CAD, Cancer, CVA, ARF, Chemo, Hep., AIDS, mental health diagnosis, sleep apnea, morbid obesity)? @ -Previous ectopic Was patient admitted / discharged? Hospital course, mention meds given and route, prescriptions, significant lab abnormalities, going to OR and other pertinent info. @ -Operating room. 28-year-old female presenting to the ER with a chief complaint of abdominal cramping and vaginal spotting. History and physical exam completed. Vitals significant for a temperature 98.8F, pulse 77, respiratory rate 19, blood pressure 138/95, oxygen saturation 98% on room air upon arrival. Patient nontoxic-appearing and in no signs of acute respiratory distress. Exam significnat for focal abdominal tenderness to the lower right quadrant/pelvis. Normal bowel sounds. Laboratory studies obtained significant for white blood cell count 10, hemoglobin 13.6., Serum hCG 28,429. Urinalysis with trace blood and occasional bacteria. No leukocyte esterases or nitrates. Type and screen pending. Transvaginal ultrasound significant for an ectopic with yolk sac, pole and cardiac activity identified. Gestational age 6 approximately 6 weeks 4 days. Case discussed with investor relations analyst VIDEO GAME SCRIPT WRITER, Dr. Scherer, who advised surgical intervention. Patient NPO. Results discussed with patient, all questions answered. Patient agreeable with plan. Patient taken to the operating room from the ER. Case discussed with ED attending, Dr. Ocasio. Undiagnosed new problem with uncertain prognosis? @ -No Drug Therapy requiring intensive monitoring for toxicity (Heparin, Nitro, Insulin, Cardizem)? @ -No Were any procedures done? @ -No Diagnosis/symptom? @ -Ectopic Acute, or Chronic, or Acute on Chronic? @ -Acute Uncomplicated (without systemic symptoms) or Complicated (systemic symptoms)? @ -Complicated Side effects of treatment? @ -No Exacerbation, Progression, or Severe Exacerbation? @ -No Poses a threat to life or bodily function? How? (Chest pain, [place], [place], pneumonia, PE, COPD, DKA, ARF, appy, cholecystitis, CVA, Diverticulitis, Homicidal, Suic idal, threat to staff... and all critical care pts) @ -Yes - Lab Data Result diagrams: 07/17/23 07:36 07/17/23 07:36 Lab Results 07/17/23 07/17/23 07/17/23 Range/Units 07:36 07:36 07:36 WBC 10.0 (3.8-10.6) k/uL RBC 4.32 (3.80-5.40) m/uL Hgb 13.6 (11.4-16.0) gm/dL Hct 41.5 (34.0-46.0) % MCV 96.0 (80.0-100.0) fL MCH 31.4 (25.0-35.0) pg MCHC 32.7 (31.0-37.0) g/dL RDW 13.0 (11.5-15.5) % Plt Count 290 (150-450) k/uL MPV 8.3 Neutrophils % 66 % Lymphocytes % 24 % Monocytes % 5 % Eosinophils % 2 % Basophils % 1 % Neutrophils # 6.6 (1.3-7.7) k/uL Lymphocytes # 2.4 (1.0-4.8) k/uL Monocytes # 0.5 (0-1.0) k/uL Eosinophils # 0.2 (0-0.7) k/uL Basophils # 0.1 (0-0.2) k/uL PT (10.0-12.5) sec INR (<1.2) APTT (22.0-30.0) sec Sodium 137 (137-145) mmol/L Potassium 4.4 (3.5-5.1) mmol/L Chloride 110 H (98-107) mmol/L Carbon Dioxide 21 L (22-30) mmol/L Anion Gap 6 mmol/L BUN 8 (7-17) mg/dL Creatinine 0.57 (0.52-1.04) mg/dL Est GFR (CKD-EPI)AfAm >90 (>60 ml/min/1.73 sqM) Est GFR (CKD-EPI)NonAf >90 (>60 ml/min/1.73 sqM) Glucose 121 H (74-99) mg/dL Plasma Lactic Acid Jose (0.7-2.0) mmol/L Calcium 8.9 (8.4-10.2) mg/dL Total Bilirubin 0.3 (0.2-1.3) mg/dL AST 22 (14-36) U/L ALT 19 (4-34) U/L Alkaline Phosphatase 72 (38-126) U/L Total Protein 7.7 (6.3-8.2) g/dL Albumin 4.5 (3.5-5.0) g/dL HCG, Quant mIU/mL Urine Color Colorless Urine Appearance Clear (Clear) Urine pH 6.5 (5.0-8.0) Ur Specific [place] 1.013 (1.001-1.035) Urine Protein Negative (Negative) Urine Glucose (UA) Negative (Negative) Urine Ketones Negative (Negative) Urine Blood Trace H (Negative) Urine Nitrite Negative (Negative) Urine Bilirubin Negative (Negative) Urine Urobilinogen <2.0 (<2.0) mg/dL Ur Leukocyte Esterase Negative (Negative) Urine RBC <1 (0-5) /hpf Urine WBC 1 (0-5) /hpf Ur Squamous Epith Cells 1 (0-4) /hpf Urine Bacteria Occasional H (None) /hpf Urine Mucus Rare H (None) /hpf Blood Type Blood Type Recheck Bld Type Recheck Status Antibody Screen Spec Expiration Date 07/17/23 07/17/23 07/17/23 Range/Units 07:36 07:36 08:45 WBC (3.8-10.6) k/uL RBC (3.80-5.40) m/uL Hgb (11.4-16.0) gm/dL Hct (34.0-46.0) % MCV (80.0-100.0) fL MCH (25.0-35.0) pg MCHC (31.0-37.0) g/dL RDW (11.5-15.5) % Plt Count (150-450) k/uL MPV Neutrophils % % Lymphocytes % % Monocytes % % Eosinophils % % Basophils % % Neutrophils # (1.3-7.7) k/uL Lymphocytes # (1.0-4.8) k/uL Monocytes # (0-1.0) k/uL Eosinophils # (0-0.7) k/uL Basophils # (0-0.2) k/uL PT (10.0-12.5) sec INR (<1.2) APTT (22.0-30.0) sec Sodium (137-145) mmol/L Potassium (3.5-5.1) mmol/L Chloride (98-107) mmol/L Carbon Dioxide (22-30) mmol/L Anion Gap mmol/L BUN (7-17) mg/dL Creatinine (0.52-1.04) mg/dL Est GFR (CKD-EPI)AfAm (>60 ml/min/1.73 sqM) Est GFR (CKD-EPI)NonAf (>60 ml/min/1.73 sqM) Glucose (74-99) mg/dL Plasma Lactic Acid Jose 1.3 (0.7-2.0) mmol/L Calcium (8.4-10.2) mg/dL Total Bilirubin (0.2-1.3) mg/dL AST (14-36) U/L ALT (4-34) U/L Alkaline Phosphatase (38-126) U/L Total Protein (6.3-8.2) g/dL Albumin (3.5-5.0) g/dL HCG, Quant 56305.1 mIU/mL Urine Color Urine Appearance (Clear) Urine pH (5.0-8.0) Ur Specific [place] (1.001-1.035) Urine Protein (Negative) Urine Glucose (UA) (Negative) Urine Ketones (Negative) Urine Blood (Negative) Urine Nitrite (Negative) Urine Bilirubin (Negative) Urine Urobilinogen (<2.0) mg/dL Ur Leukocyte Esterase (Negative) Urine RBC (0-5) /hpf Urine WBC (0-5) /hpf Ur Squamous Epith Cells (0-4) /hpf Urine Bacteria (None) /hpf Urine Mucus (None) /hpf Blood Type A Negative Blood Type Recheck A Neg Bld Type Recheck Status No Antibody Screen NEGATIVE Spec Expiration Date 07/20/2023 - 234407/17/23 Range/Units 09:00 WBC (3.8-10.6) k/uL RBC (3.80-5.40) m/uL Hgb (11.4-16.0) gm/dL Hct (34.0-46.0) % MCV (80.0-100.0) fL MCH (25.0-35.0) pg MCHC (31.0-37.0) g/dL RDW (11.5-15.5) % Plt Count (150-450) k/uL MPV Neutrophils % % Lymphocytes % % Monocytes % % Eosinophils % % Basophils % % Neutrophils # (1.3-7.7) k/uL Lymphocytes # (1.0-4.8) k/uL Monocytes # (0-1.0) k/uL Eosinophils # (0-0.7) k/uL Basophils # (0-0.2) k/uL PT 10.7 (10.0-12.5) sec INR 1.0 (<1.2) APTT 25.5 (22.0-30.0) sec Sodium (137-145) mmol/L Potassium (3.5-5.1) mmol/L Chloride (98-107) mmol/L Carbon Dioxide (22-30) mmol/L Anion Gap mmol/L BUN (7-17) mg/dL Creatinine (0.52-1.04) mg/dL Est GFR (CKD-EPI)AfAm (>60 ml/min/1.73 sqM) Est GFR (CKD-EPI)NonAf (>60 ml/min/1.73 sqM) Glucose (74-99) mg/dL Plasma Lactic Acid Jose (0.7-2.0) mmol/L Calcium (8.4-10.2) mg/dL Total Bilirubin (0.2-1.3) mg/dL AST (14-36) U/L ALT (4-34) U/L Alkaline Phosphatase (38-126) U/L Total Protein (6.3-8.2) g/dL Albumin (3.5-5.0) g/dL HCG, Quant mIU/mL Urine Color Urine Appearance (Clear) Urine pH (5.0-8.0) Ur Specific [place] (1.001-1.035) Urine Protein (Negative) Urine Glucose (UA) (Negative) Urine Ketones (Negative) Urine Blood (Negative) Urine Nitrite (Negative) Urine Bilirubin (Negative) Urine Urobilinogen (<2.0) mg/dL Ur Leukocyte Esterase (Negative) Urine RBC (0-5) /hpf Urine WBC (0-5) /hpf Ur Squamous Epith Cells (0-4) /hpf Urine Bacteria (None) /hpf Urine Mucus (None) /hpf Blood Type Blood Type Recheck Bld Type Recheck Status Antibody Screen Spec Expiration Date - Radiology Data Radiology results: report reviewed, image reviewed Disposition Clinical Impression: Ectopic Disposition: ADMITTED IP TO THIS [facility] Condition: Fair Time of Disposition: 09:17
[2023-07-17] MEDS: SODIUM CHLORIDE 0.9% 1,000 ML IV STA (07:34)
[2023-07-17 07:50] LABS: Basophils # (A) 0.1 k/uL (0-0.2); Basophils % (A) 1 %; Eosinophils # (A) 0.2 k/uL (0-0.7); Eosinophils % (A) 2 %; HCT 41.5 % (34.0-46.0); HGB 13.6 gm/dL (11.4-16.0); Lymphocytes # (A) 2.4 k/uL (1.0-4.8); Lymphocytes % (A) 24 %; MCH 31.4 pg (25.0-35.0); MCHC 32.7 g/dL (31.0-37.0); Mean Platelet Volume 8.3; Monocytes # (A) 0.5 k/uL (0-1.0); Monocytes % (A) 5 %; Neutrophils # (A) 6.6 k/uL (1.3-7.7); Neutrophils % (A) 66 %; Platelet Count 290 k/uL (150-450); RBC 4.32 m/uL (3.80-5.40)
[2023-07-17] MEDS: ACETAMINOPHEN TAB 325 MG TAB PO STA (07:51)
[2023-07-17] MEDS: ONDANSETRON 4 MG/2 ML VIAL IVP STA (07:54)
[2023-07-17 08:07] LABS: ALT 19 U/L (4-34); AST 22 U/L (14-36); African American GFR (CKD) >90 (>60 ml/min/1.73 sqM); Albumin 4.5 g/dL (3.5-5.0); Alkaline Phosphatase 72 U/L (38-126); Anion Gap 6 mmol/L; Blood Urea Nitrogen 8 mg/dL (7-17); Calcium 8.9 mg/dL (8.4-10.2); Carbon Dioxide 21 mmol/L (22-30); Chloride 110 mmol/L (98-107); Glucose 121 mg/dL (74-99); Non-African American GFR(CKD) >90 (>60 ml/min/1.73 sqM); Potassium 4.4 mmol/L (3.5-5.1); Sodium 137 mmol/L (137-145); Total Bilirubin 0.3 mg/dL (0.2-1.3); Total Protein 7.7 g/dL (6.3-8.2)
[2023-07-17] MEDS: MORPHINE SULFATE 2 MG/ML SYRINGE IVP ONE (08:49)
--- NOTE | 2023-07-17 08:53 | US ---
EXAMINATION TYPE: US transvaginal DATE OF EXAM: 07/17/2023 COMPARISON: NONE CLINICAL INDICATION: Female, 28 years old with history of vaginal bleeding/ R sided abd pain; Pain an d vomiting x 1 week TECHNIQUE; Transvaginal sonographic images were medically necessary Date of LMP: 06/01/2023 EXAM MEASUREMENTS: Uterus: 9.7 x 4.4 x 5.8 cm Endometrial Stripe: 2.8 cm Right Ovary: 5.4 x 4.1 x 3.6 cm Left Ovary: 5.7 x 5.5 x 5.4 cm 1. Uterus: Anteverted wnl 2. Endometrium: Thickened and heterogenous 3. Right Ovary: simple cyst noted 4. Left Ovary: live 6 week 4 day ectopic 5. Bilateral Adnexa: ectopic left 6. Posterior cul-de-sac: Small to moderate fluid Report called to the ER PA by Dr. Alcocer by telephone at the time of final dictation. IMPRESSION: 1. Ectopic right adnexal region. Yolk sac pole and cardiac activity were identified. Estimated gestational age of 6 weeks 4 days based on current measurements
[2023-07-17 09:18] LABS: Partial Thromboplastin Time 25.5 sec (22.0-30.0); Prothrombin Time 10.7 sec (10.0-12.5)
[2023-07-17] MEDS: MORPHINE SULFATE 2 MG/ML SYRINGE IVP STA (09:19)
[2023-07-17] MEDS: MORPHINE SULFATE 4 MG/ML SYRINGE IVP STA (09:39)
[2023-07-17 10:19] LABS: Appearance,Urine Clear (Clear); Bacteria,Urine Occasional /hpf; Bilirubin,Urine Negative (Negative); Blood,Urine Trace (Negative); Color,Urine Colorless; Glucose,Urine (UA) Negative (Negative); Ketones,Urine Negative (Negative); Leukocyte Esterase,Urine Negative (Negative); Mucus,Urine Rare /hpf; Nitrite,Urine Negative (Negative); PH, Urine 6.5 (5.0-8.0); Protein,Urine Negative (Negative); RBC,Urine <1 /hpf (0-5); Specific Gravity,Urine 1.013 (1.001-1.035); Squamous Epithelial Cell,Urine 1 /hpf (0-4); Urobilinogen,Urine <2.0 mg/dL (<2.0); WBC,Urine 1 /hpf (0-5)
[2023-07-17] MEDS ORDERED: NALOXONE 0.4 MG/ML 1 ML VIAL IVP PRN (10:50)
[2023-07-17] MEDS: HYDROmorphone 1 MG/ML 1 ML SYRINGE IVP STA (10:54)
[2023-07-17] MEDS ORDERED: NALOXONE 0.4 MG/ML 1 ML VIAL IV PRN (12:08)
[2023-07-17] MEDS: SODIUM CHLORIDE 0.9% 1,000 ML IV SCH (12:16)
--- NOTE | 2023-07-17 12:17 | P.HPIHPCON ---
History of Present Illness H&P Date: 07/17/23 Chief Complaint: Left pelvic pain, vaginal bleeding in Ms. Serna is a 28 year old at 6 weeks and 4 days gestation by LMP of 06/01/2023 presenting to the ER with vaginal bleeding and pelvic pain, found to have a live left tubal ectopic on pelvic US. The patient does have a history of one prior ectopic for which she had surgery but is unsure if it was salpingectomy or salpingostomy. The patient has been experiencing the vaginal bleeding for the past week, which has been relatively light. The pelvic pain has progressively worsening until it became severe today and she was prompted to be evaluated in the ER. OBGYN [facility]: 1 full term vaginal delivery without complications, 2 VTPs, 1 SAB, and 1 prior ectopic managed surgically Past Medical History: patient denies Past Surgical History: Laparoscopy for tubal ectopic Medications: None Allergies: None Social History: 1 PPD cigarette smoker, frequent marijuana use, minimal EtOH. Consent for Procedure: I have explained the operation/procedure to the patient, including the risks, benefits, side effects, alternative therapies (including not receiving the prop osed treatment or service), the likelihood of the patient achieving his/her goals, and potential recuperation problems for the procedure/sedation/analgesia, as well as any blood products, if indicated. I also explained to the patient the risks, benefits and side effects of the alternatives, as well as the risks related to not receiving the proposed procedure, care, treatment, or services. Past Medical History Past Medical History: No Reported History Additional Past Medical History / Comment(s): Ectopic - left History of Any Multi-Drug Resistant Organisms: None Reported Additional Past Surgical History / Comment(s): tubal Past Anesthesia/Blood Transfusion Reactions: No Reported Reaction Past Psychological History: No Psychological Hx Reported Smoking Status: Current every day smoker Past Alcohol Use History: Occasional Past Drug Use History: Marijuana Medications and Allergies Home Medications Medication Instructions Recorded Confirmed Type No Known Home Medications 07/17/23 07/17/23 History Allergies Allergy/AdvReac Type Severity Reaction Status Date / Time adhesive tape Allergy Rash/Hives Verified 07/17/23 09:29 Surgical - Exam Vital Signs Temp Pulse Resp BP Pulse Ox 98.8 F 77 19 138/95 98 07/17/23 06:50 07/17/23 06:50 07/17/23 06:50 07/17/23 06:50 07/17/23 06:50 Focused physical exam is performed. The patient is conversing normally and is in no apparent distress. Breathing is non-labored. Abdomen is soft and mildly tender to palpation in the pelvis. Extremities are non-edematous and non- tender. Results - Labs 07/17/23 07:36 07/17/23 07:36 Abnormal Lab Results - Last 24 Hours (Table) 07/17/23 07/17/23 Range/Units 07:36 07:36 Chloride 110 H (98-107) mmol/L Carbon Dioxide 21 L (22-30) mmol/L Glucose 121 H (74-99) mg/dL Urine Blood Trace H (Negative) Urine Bacteria Occasional H (None) /hpf Urine Mucus Rare H (None) /hpf Diabetes panel 07/17/23 Range/Units 07:36 Sodium 137 (137-145) mmol/L Potassium 4.4 (3.5-5.1) mmol/L Chloride 110 H (98-107) mmol/L Carbon Dioxide 21 L (22-30) mmol/L BUN 8 (7-17) mg/dL Creatinine 0.57 (0.52-1.04) mg/dL Glucose 121 H (74-99) mg/dL Calcium 8.9 (8.4-10.2) mg/dL AST 22 (14-36) U/L ALT 19 (4-34) U/L Alkaline Phosphatase 72 (38-126) U/L Total Protein 7.7 (6.3-8.2) g/dL Albumin 4.5 (3.5-5.0) g/dL Calcium panel 07/17/23 Range/Units 07:36 Calcium 8.9 (8.4-10.2) mg/dL Albumin 4.5 (3.5-5.0) g/dL Pituitary panel 07/17/23 Range/Units 07:36 Sodium 137 (137-145) mmol/L Potassium 4.4 (3.5-5.1) mmol/L Chloride 110 H (98-107) mmol/L Carbon Dioxide 21 L (22-30) mmol/L BUN 8 (7-17) mg/dL Creatinine 0.57 (0.52-1.04) mg/dL Glucose 121 H (74-99) mg/dL Calcium 8.9 (8.4-10.2) mg/dL Adrenal panel 07/17/23 Range/Units 07:36 Sodium 137 (137-145) mmol/L Potassium 4.4 (3.5-5.1) mmol/L Chloride 110 H (98-107) mmol/L Carbon Dioxide 21 L (22-30) mmol/L BUN 8 (7-17) mg/dL Creatinine 0.57 (0.52-1.04) mg/dL Glucose 121 H (74-99) mg/dL Calcium 8.9 (8.4-10.2) mg/dL Total Bilirubin 0.3 (0.2-1.3) mg/dL AST 22 (14-36) U/L ALT 19 (4-34) U/L Alkaline Phosphatase 72 (38-126) U/L Total Protein 7.7 (6.3-8.2) g/dL Albumin 4.5 (3.5-5.0) g/dL Assessment and Plan Assessment: 28 year old with 6 week 4 day live ectopic in left adnexa Plan: Risks, benefits, and alternatives to Laparoscopic Left Salpingectomy are discussed with the patient including bleeding, infection, damage to surrounding structures including ovaries, bowel, bladder, ureters, and post-operative VTE. The patient is unsure if she still has her other tube after the prior laparoscopy for ectopic . She would like to proceed with salpingectomy rather than salpingostomy and is fine with the possiblity of never being able to become again. She is done with childbearing. All questions answered. Patient has been NPO since before midnight. Time with Patient: Greater than 30 (35 minutes)
[2023-07-17] MEDS: HYDROmorphone 1 MG/ML 1 ML SYRINGE IVP PRN (12:48)
[2023-07-17] MEDS: ONDANSETRON 4 MG/2 ML VIAL IVP PRN (12:52)
[2023-07-17] MEDS: LACTATED RINGERS 1,000 ML IV ONE ×2 (13:26→14:53)
[2023-07-17] MEDS: ONDANSETRON 4 MG/2 ML VIAL IVP ONE (13:58)
[2023-07-17] MEDS ORDERED: fentaNYL (PF) 50 MCG/ML 2 ML AMP ONE (13:58)
[2023-07-17] MEDS ORDERED: SUCCINYLCHOLINE CHLORIDE 200 MG/10 ML VIAL IV ONE (13:58)
[2023-07-17] MEDS ORDERED: PROPOFOL 10 MG/ML 20 ML VIAL IV ONE (13:58)
[2023-07-17] MEDS ORDERED: ROCURONIUM 10 MG/ML (5 ML VIAL) IV ONE (13:58)
[2023-07-17] MEDS: FAMOTIDINE 20 MG/2 ML VIAL IVP ONE (13:58)
[2023-07-17] MEDS ORDERED: LIDOCAINE 4% LTA KIT (4 ML) TOPICAL ONE (13:58)
[2023-07-17] MEDS ORDERED: NEOSTIGMINE 1 MG/ML 10 ML VIAL ONE (13:58)
[2023-07-17] MEDS: DEXAMETHASONE SOD PHOSPHATE 4 MG/ML 1 ML VIAL IVP ONE (13:58)
[2023-07-17] MEDS ORDERED: MIDAZOLAM 2 MG/2 ML VIAL ONE (13:58)
[2023-07-17] MEDS ORDERED: GLYCOPYRROLATE 0.2 MG/ML 2 ML VIAL ONE (13:58)
[2023-07-17] MEDS ORDERED: LIDOCAINE 1% INJ 10MG/ML (20 ML MDV) ONE (13:58)
[2023-07-17] MEDS: BUPIVACAINE (PF) 0.25% 30 ML VIAL SQ ONE (14:29)
--- NOTE | 2023-07-17 14:53 | P.OP ---
Date of Procedure: 07/17/23 Preoperative Diagnosis: Live left tubal ectopic Postoperative Diagnosis: Rupured ectopic of left fallopian tube Procedure(s) Performed: Laparoscopic Left Salpingectomy, Evacuation of Hemoperitoneum Implants: None Anesthesia: CACHORROA Surgeon: Madisyn Scherer Estimated Blood Loss (ml): 5 IV fluids (ml): 1,000 Urine output (ml): 100 Pathology: other (left tubal ectopic ) Condition: stable Disposition: same day Indications for Procedure: Ms Serna is a 28 year old at 6 weeks and 4 days by LMP who presented to the ER with lower abdominal pain and vaginal bleeding. US diagnosed a live left tubal ectopic . The patient was counseled about the option of surgical management with laparoscopic salpingectomy, given that her HCG was high and the ectopic had cardiac activity and that these are relative contraindications to medical management with Methotrexate. The risks, benefits, and alternatives to surgery were discussed including risk of bleeding, infection, damage to surrounding structures including ovaries/bowel/bladder/ureters, and post- operative VTE. The patient understands these risks and desires to proceed with surgery as discussed. All questions answered. Operative Findings: Left ruptured ectopic noted with approximately 500 mL of hemoperitoneum. The right fallopian tube is noted to still be present and int act. Uterus is unremarkable. Description of Procedure: Patient was taken to the OR with IV fluid running and pneumatic compression stockings on both legs. General anesthesia was obtained without difficulty. The patient was placed in the dorsal lithotomy position with Sunil-type stirrups with knees bent at 30 degree angles. Examination under anesthesia revealed a normal-sized, anteverted uterus. The patient as prepared and draped. The bladder was emptied. A speculum was placed into the vagina. The anterior lip of the cervix was grasped with a single-toothed tenaculum. A uterine manipulator was introduced. A vertical skin incision was made at the umbilical fold. The periumbilical skin was manually elevated. The Veress needle was introduced into the peritoneal cavity at a straight angle without difficulty. AA 5mm trocar was inserted into the abdomen under direct laparoscopic visualization. CO2 gas insuflattion of the abdomen was establishd to 15mm Hg. Intraabdominal survey revealed lack of any visceral or vascular injury. The pelvic and abdominal anatomy was noted as above. Two additional laparoscopic assit ports were placed in the right and left lower quadrants. A Cristina Grasper was used to parts picker the fimbriated end of the left fallopian tube. The LigaSure device was used to seal and ligate the fallopian tube sequentially to the level of the uterine c ornua. The fallopian tube containing the ectopic was placed in a 5mm EndoCatch bag and removed from the left lower quadrant port without difficulty. At this time, the hemoperitoneum was evacuated from the abdomen with suction. Excellent hemostasis was noted at the end of the case. The patient tolerated the procedure well. All instruments were removed from the abdomen and vagina, and all counts were correct times two. The patient was taken to the recovery room in stable condition.
[2023-07-17 15:57] VITALS: RESP 16; TEMP 97
[2023-07-17 16:45] VITALS: BP 108/72; PULSE 64
== END 2023-07-17 13:37 | disposition home or self-care (01) ==
LOC: EC 06:49 → UNDOADMOB 12:04 → 4FBP 12:04 → UNDODISOB 16:46
DX: O00.102 Left tubal pregnancy without intrauterine pregnancy (principal)
CPT/HCPCS: 59151; 96376; 96361; 96374; 96375; 99285; 36415; 86900; 86901; 80053; 83605; 85025; 85610; 85730; 86850; 81001; 84702; 76830; J2250; J0330; J2270 ×2; J1100; J2710; J2405; J2001; J3010; J3490; J1170; J2704; J0665; 88305

== ENCOUNTER 2024-05-24 20:07 | Emergency (ER) | payer OTHER ==
[2024-05-24] MEDS: ONDANSETRON 4 MG/2 ML VIAL IVP STA (20:56)
[2024-05-24] MEDS: KETOROLAC 15 MG/ML 1 ML VIAL IVP STA (20:56)
--- NOTE | 2024-05-24 21:08 | ED ---
Dizziness HPI - General Chief Complaint: Dizziness Stated Complaint: Anxiety Time Seen by Provider: 05/24/24 20:07 Source: patient, EMS, RN notes reviewed Mode of arrival: EMS Limitations: no limitations - History of Present Illness Initial Comments: 29-year-old female presents emergency department with chief complaint of dizziness nausea headache. Patient states that she started getting very dizzy and nauseous early after had a panic attack she states this happened twice a recent. Most working symptom of the time is frequent headache severe and de bilitating. She states that she has not had these evaluated. She denies any chest pain she denies any current dizziness. Denies any focal weakness. - Related Data Previous Rx's Medication Instructions Recorded Acetaminophen Tab [Tylenol] 650 mg PO Q6H PRN #30 tab 07/17/23 Ibuprofen [Motrin] 600 mg PO Q6HR PRN #30 tab 07/17/23 oxyCODONE HCL [Roxicodone] 5 mg PO Q6HR PRN 3 Days #12 tab 07/17/23 Allergies Allergy/AdvReac Type Severity Reaction Status Date / Time adhesive tape Allergy Rash/Hives Verified 05/24/24 20:14 Review of Systems ROS Statement: Those systems with pertinent positive or pertinent negative responses have been documented in the HPI. ROS Other: All systems not noted in ROS Statement are negative. Past Medical History Past Medical History: No Reported History Additional Past Medical History / Comment(s): Ectopic - left History of Any Multi-Drug Resistant Organisms: None Reported Additional Past Surgical History / Comment(s): tubal Past Anesthesia/Blood Transfusion Reactions: No Reported Reaction Past Psychological History: No Psychological Hx Reported Smoking Status: Current every day smoker Past Alcohol Use History: Occasional Past Drug Use History: Marijuana General Exam Limitations: no limitations General appearance: alert, in no apparent distress Head exam: Present: atraumatic, normocephalic, normal inspection Eye exam: Present: normal appearance, PERRL, EOMI. Absent: scleral icterus, conjunctival injection, periorbital swelling ENT exam: Present: normal exam, mucous membranes moist Neck exam: Present: normal inspection, full ROM. Absent: tenderness, meningismus, lymphadenopathy Respiratory exam: Present: normal lung sounds bilaterally. Absent: respiratory distress, wheezes, rales, rhonchi, stridor Cardiovascular Exam: Present: regular rate, normal rhythm, normal heart sounds. Absent: systolic murmur, diastolic murmur, rubs, gallop, clicks Extremities exam: Present: normal inspection, full ROM, normal capillary refill. Absent: tenderness, pedal edema, joint swelling, calf tenderness Neurological exam: Present: alert, oriented X3, CN II-XII intact, reflexes normal. Absent: motor sensory deficit Course Vital Signs 05/24/24 20:08 Temperature 98.5 F Pulse Rate 73 Respiratory 24 Rate Blood Pressure 128/81 O2 Sat by Pulse 100 Oximetry EKG Findings - EKG Comments: EKG Findings:: 20: 17 sinus bradycardia rate of 59 UT 173 QRS 89 QT351/350 - EKG Results: EKG: interpreted by BOB Medical Decision Making - Medical Decision Making Was pt. sent in by a medical professional or institution (, PA, MAGNETIC OBSERVER, urgent care, hospital, or long term...) When possible be specific @ -No Did you speak to anyone other than the patient for history (EMS, parent, family, police, friend...)? What history was obtained from this source @ -No Did you review nursing and triage notes (agree or disagree)? Why? @ -I reviewed and agree with nursing and triage notes Were old charts reviewed (outside hosp., previous admission, EMS record, old EKG, old radiological studies, urgent care reports/EKG's, long term records)? Report findings @ -No old charts were reviewed Differential Diagnosis (chest pain, altered mental status, abdominal pain women, abdominal pain men, vaginal bleeding, weakness, fever, dyspnea, syncope, headache, dizziness, GI bleed, back pain, seizure, CVA, palpatations, mental health, musculoskeletal)? @ -Differential Headache: Migraine, tension, cluster, carbon monoxide, central venous thrombosis, pension karma temporal arteritis, acute closure glaucoma, intercranial hemorrhage, mastoiditis, sinusitis, head injury, this is not meant to be an all-inclusive list. EKG interpreted by me (3pts min.). @ -None X-rays interpreted by me (1pt min.). @ -None done CT interpreted by me (1pt min.). @ -CT of the brain showing no acute no acute process U/S interpreted by me (1pt. min.). @ -None done What testing was considered but not performed or refused? (CT, X-rays, U/S, labs)? Why? @ -None What meds were considered but not given or refused? Why? @ -None Did you discuss the management of the patient with other professionals (professionals i.e. , PA, MAGNETIC OBSERVER, lab, RT, psych nurse, social worker assistant, crop supervisor, teacher, training and development officer, case management assistant)? Give summary @ -No Was smoking cessation discussed for >3mins.? @ -No Was critical care preformed (if so, how long)? @ -No Were there social determinants of health that impacted care today? How? (Homelessness, low income, unemployed, alcoholism, drug addiction, transportation, low edu. Level, literacy, decrease access to med. care, halfway, rehab)? @ -No Was there de-escalation of care discussed even if they declined (Discuss DNR or withdrawal of care, Hospice)? DNR status @ -No What co-morbidities impacted this encounter? (DM, HTN, Smoking, COPD, CAD, Cancer, CVA, ARF, Chemo, Hep., AIDS, mental health diagnosis, sleep apnea, morbid obesity)? @ -None Was patient admitted / discharged? Hospital course, mention meds given and route, prescriptions, significant lab abnormalities, going to OR and other pertinent info. @ -Discharge patient has headache which is resolved, patient did have panic act prior to arrival. Patient was discharged in stable condition with past. Undiagnosed new problem with uncertain prognosis? @ -No Drug Therapy requiring intensive monitoring for toxicity (Heparin, Nitro, Insulin, Cardizem)? @ -No Were any procedures done? @ -No Diagnosis/symptom? @ -Headache dizziness anxiety Acute, or Chronic, or Acute on Chronic? @ -Acute Uncomplicated (without systemic symptoms) or Complicated (systemic symptoms)? @ -Uncomplicated Side effects of treatment? @ -No Exacerbation, Progression, or Severe Exacerbation? @ -No Poses a threat to life or bodily function? How? (Chest pain, [place], [place], pneumonia, PE, COPD, DKA, ARF, appy, cholecystitis, CVA, Diverticulitis, Homicidal, Suicidal, threat to staff... and all critical care pts) @ -No Disposition Clinical Impression: Headache, Dizziness, Panic attack Disposition: HOME SELF-CARE Condition: Stable Instructions (If sedation given, give patient instructions): Dizziness (ED) Additional Instructions: Please return to the Emergency Department if symptoms worsen or any other concerns. Is patient prescribed a controlled substance at d/c from ED?: No Referrals: Dina Wooten DO [Primary Care Provider] - 1-2 days Time of Disposition: 21:43
--- NOTE | 2024-05-24 21:15 | CT ---
EXAMINATION TYPE: CT brain wo con CT DLP: 1194.4 mGycm, Automated exposure control for dose reduction was used. DATE OF EXAM: 05/24/2024 9:00 PM COMPARISON: None. CLINICAL INDICATION:Female, 29 years old with history of headaches, headache, dizziness TECHNIQUE: Brain: Multiple axial CT images of the brain were obtained without IV contrast. . Coronal and sagitta l reformats reviewed. FINDINGS: Brain: Extra-axial spaces: No abnormal extra-axial fluid collections. Ventricular system: Within normal limits Cerebral parenchyma: No acute intraparenchymal hemorrhage or mass effect. The wilson-white junction is well differentiated. Cerebellum: Unremarkable. Mass effect: No evidence of midline shift. Intracranial vasculature: unremarkable Soft tissues: Normal. Calvarium/osseous structures: No depressed skull fracture. Paranasal sinuses and mastoid air cells: Minimal scattered paranasal sinus disease. Visualized orbits: Orbital contents are intact. IMPRESSION: No acute intracranial process. [facility], , 05/24/2024 9:12 PM
[2024-05-24 21:51] VITALS: BP 133/84; PULSE 72; RESP 18; TEMP 98.4
== END 2024-05-24 21:52 | disposition home or self-care (01) ==
LOC: EC 20:07
DX: F41.0 Panic disorder [episodic paroxysmal anxiety] (principal); R00.1 Bradycardia, unspecified; F17.200 Nicotine dependence, unspecified, uncomplicated; Z91.09 Other allergy status, other than to drugs and biological substances
CPT/HCPCS: 93005; 70450; 99284; 96374; 96375; J2405; J1885